=== PATIENT | female | born 1940 | race Caucasian/White ===

== ENCOUNTER 2018-07-28 17:18 | Inpatient (IN) | payer MEDICARE, MEDICAID ==
[~2018-07-28] VITALS: Ht 167.6 cm; Wt 51.8 kg
--- NOTE | 2018-07-28 18:00 | NUR ---
NURSE NOTES: female AOX1 only to name. admitted 2 to cellulitis to rt foot. Rt and lt assessed no presence of redness or swelling skin to bilateral feet. Pt has old scar to abdominal area. Poor historian, unable to answer any questions. SNF phoned for immunization information with known to be found. Unable to start IV site 3 attempt pt retracting arms. phoned for admitting orders with no response upon this writing. Fall risk precautions in place bed in lowest position
[2018-07-28] MEDS ORDERED: MULTIVITAMINS1 EAC2 ORAL (18:06)
[2018-07-28] MEDS ORDERED: ACETAMINOPHEN325 M1 ORAL (18:06)
[2018-07-28] MEDS ORDERED: BISACODYL5 MG ORAL (18:06)
[2018-07-28] MEDS ORDERED: FLEET ENEMA133 ML RECTAL (18:06)
[2018-07-28] MEDS ORDERED: MEMANTINE HCL ER7 MG PO (18:06)
[2018-07-28] MEDS ORDERED: MILK OF MA2400 MG/10 ORAL (18:06)
[2018-07-28 18:38] VITALS: BP 105/59
--- NOTE | 2018-07-28 19:45 | NUR ---
NURSE NOTES: Received patient in bed legs dangling on the side of the bed. Patient awake and with periods of confusion. Attempted to re-orient patient to name, place and time, patient only replied by rambling. No belongings noted. Patient in no distress noted. No facial grimacing. No IV access. Will insert one. Collected specimen for MRSA, VRE and CRE. Partial sponge bath provided by BAR ATTENDANT.
[2018-07-28 20:00] VITALS: BP 113/61
--- NOTE | 2018-07-28 20:00 | NUR ---
NURSE NOTES: call ed facility gave orders to continue all group home meds. dr informed that both feet were assessed no visible redness noted . Gave orders to treat pt for cellulitis as follows. Pharmacy to dose Vancomycin, ua by straight catheterization, cmp, bmp, bilateral venous duplex to lower extremity. Also gave orders for 1/2 NS to be given at 75 cc/hr, Tylenol per protocol 650 mg q 4 hours
[2018-07-28] MEDS ORDERED: Fleet's Enema 133ml RECTAL PRN (20:45)
[2018-07-28] MEDS ORDERED: Milk of Magnesia 30ml Ud ORAL PRN (20:45)
--- NOTE | 2018-07-28 20:58 | NUR ---
HAND-OFF: Report given to .Saul BAIRES
--- NOTE | 2018-07-28 20:59 | NUR ---
NURSE NOTES: Oncoming nurse made aware that pt does not have iv access # attempts made by publicity writer, pt retracted arm. As well as follow up DVT prophylaxis.
[2018-07-28 21:33] LABS: BASOPHILS % (AUTO) 1.4 % (0.0-2.0); EOSINOPHILS % (AUTO) 2.8 % (0.0-3.0); HEMOGLOBIN 12.5 G/DL (12.0-16.0); MEAN CORPUSCULAR VOLUME 91 FL (80-99); MONOCYTES % (AUTO) 10.7 % (1.0-10.0); NEUTROPHILS % (AUTO) 60.1 % (45.0-75.0); PLATELET COUNT 166 K/UL (150-450); RED BLOOD COUNT 4.29 M/UL (4.20-5.40); WHITE BLOOD COUNT 8.9 K/UL (4.8-10.8)
--- NOTE | 2018-07-28 22:15 | History and Physical Report ---
DATE OF ADMISSION: 07/28/2018 REASON FOR ADMISSION: Cellulitis, peripheral vascular disease, possible gangrene, dementia, and depression. HISTORY OF PRESENT ILLNESS: This is a 76-year-old female who has a past medical history of dementia, depression, failure to thrive, came to the emergency room for having cellulitis on the left leg and also the patient's left foot is ischemic and blood . The patient cannot give any history. She is alert and oriented x1, mostly bedridden. PAST MEDICAL HISTORY: Dementia, depression, and dysphagia. MEDICATIONS: See the list. ALLERGIES: NKA. FAMILY HISTORY: Noncontributory. SOCIAL HISTORY: [facility], mostly bedridden. REVIEW OF SYSTEMS: Cannot be obtained. PHYSICAL EXAMINATION: GENERAL: This is an elderly female who is currently in bed. VITAL SIGNS: Blood pressure 120/70, pulse 74, and respirations 18. No fever. SKIN: Good skin turgor. HEENT: NAD. CHEST: Bilaterally clear. CARDIOVASCULAR: Regular rhythm. No gallop or murmur. ABDOMEN: Soft. Positive bowel sounds. Nontender. EXTREMITIES: Right leg has cellulitis and erythema and ischemic changes. GENITOURINARY: Deferred. LABORATORY EXAMINATION: Pending. ASSESSMENT: 1. Cellulitis. 2. Possible gangrene, rule out ischemia. 3. Hypertension. 4. Depression. 5. Dementia. 6. Dysphagia. PLAN: We will admit on medical floor. We will start intravenous vancomycin and consider ID consult and check arterial and venous duplex to rule out peripheral vascular disease. Chao Mcdonald M.D. DR: GRISELDA JOB#: [id number] CC:
[2018-07-28 22:18] LABS: ALANINE AMINOTRANSFERASE 17 U/L (12-78); ALBUMIN 3.2 G/DL (3.4-5.0); ALBUMIN/GLOBULIN RATIO 0.8 (1.0-2.7); ALKALINE PHOSPHATASE 97 U/L (46-116); ANION GAP 8 mmol/L (5-15); ASPARTATE AMINO TRANSFERASE 27 U/L (15-37); BILIRUBIN,TOTAL 0.4 MG/DL (0.2-1.0); BLOOD UREA NITROGEN 17 mg/dL (7-18); CALCIUM 9.7 MG/DL (8.5-10.1); CARBON DIOXIDE 28 MMOL/L (21-32); CHLORIDE 106 MMOL/L (98-107); CREATININE 0.7 MG/DL (0.55-1.30); POTASSIUM 5.1 MMOL/L (3.5-5.1); SODIUM 142 MMOL/L (136-145)
[2018-07-29] VITALS: BP 104/61
[2018-07-29 04:00] VITALS: BP 112/58
--- NOTE | 2018-07-29 05:00 | NUR ---
NURSE NOTES: Patient in bed sleeping with no distress noted. Purewick placed and able to collect urine fo UA. Partial sponge bath provided.
[2018-07-29 06:37] LABS: APPEARANCE,URINE CLEAR; BILIRUBIN, URINE NEGATIVE (NEGATIVE); COLOR,URINE PALE YELLOW; GLUCOSE, URINE (UA) NEGATIVE (NEGATIVE); KETONES,URINE NEGATIVE (NEGATIVE); LEUKOCYTE ESTERASE ,URINE 2+ (NEGATIVE); NITRITE,URINE NEGATIVE (NEGATIVE); PH,URINE 6 (4.5-8.0); PROTEIN,URINE NEGATIVE (NEGATIVE); UROBILINOGEN,URINE NORMAL MG/DL (0.0-1.0)
--- NOTE | 2018-07-29 07:32 | NUR ---
HAND-OFF: Report given to VIRY Waggoner.
--- NOTE | 2018-07-29 07:57 | NUR ---
NURSE NOTES: Patient alert to name,respirations unlabored,IV fluids infusing as ordered. Strong pedal pulses noted to bilateral feet ,skin intact. Breakfast at bed side will assist patient.Bed alarm is on,call light within reach.
[2018-07-29 08:00] VITALS: BP 125/69
[2018-07-29 12:00] VITALS: BP 100/69
--- NOTE | 2018-07-29 12:23 | Consultation ---
History of Present Illness General Date patient seen: Jul 29, 2018 Present Illness HPI 76-year-old female with past medical history of dementia, depression, failure to thrive, came to the emergency room for having LLE cellulitis. the pt Allergies: Coded Allergies: No Known Allergies (Unverified , 07/28/18) Medication History Scheduled Memantine HCl (Memantine HCl ER), 7 MG PO DAILY, (Reported) Multivitamins* (Multivitamins*), 1 TAB ORAL DAILY, (Reported) Scheduled PRN Acetaminophen* (Acetaminophen 325MG Tablet*), 650 MG ORAL Q6H PRN for For Pain, (Reported) Bisacodyl* (Dulcolax*), 10 MG ORAL DAILY PRN for Constipation, (Reported) Magnesium Hydroxide* (Milk Of Magnesia*), 30 ML ORAL DAILY PRN for Constipation, (Reported) Na Phos,M-B/Na Phos,Di-Ba* (Fleet Enema*), 133 ML RECTAL DAILY PRN for Constipation, (Reported) Patient History Healthcare decision maker Resuscitation status Full Code Advanced Directive on File Physical Exam Last 24 Hour Vital Signs Date Time Temp Pulse Resp B/P (MAP) Pulse Ox O2 Delivery O2 Flow Rate FiO2 07/29/18 09:00 Room Air 07/29/18 04:00 97.4 64 16 112/58 (76) 99 07/29/18 00:00 97.9 73 16 104/61 (75) 94 07/28/18 21:00 Room Air 07/28/18 20:00 98.1 76 18 113/61 (78) 100 07/28/18 18:38 98.0 79 20 105/59 (74) 98 07/28/18 17:44 Room Air Intake and Output 07/28/18 07/29/18 19:00 07:00 Intake Total 600 ml Balance 600 ml Intake IV Total 600 ml # Voids 2 Laboratory Tests Test 07/28/18 21:00 07/28/18 21:08 07/29/18 05:50 White Blood Count 8.9 K/UL (4.8-10.8) Red Blood Count 4.29 M/UL (4.20-5.40) Hemoglobin 12.5 G/DL (12.0-16.0) Hematocrit 39.0 % (37.0-47.0) Mean Corpuscular Volume 91 FL (80-99) Mean Corpuscular Hemoglobin 29.2 PG (27.0-31.0) Mean Corpuscular Hemoglobin Concent 32.1 G/DL (32.0-36.0) Red Cell Distribution Width 12.0 % (11.6-14.8) Platelet Count 166 K/UL (150-450) Mean Platelet Volume 6.6 FL (6.5-10.1) Neutrophils (%) (Auto) 60.1 % (45.0-75.0) Lymphocytes (%) (Auto) 25.0 % (20.0-45.0) Monocytes (%) (Auto) 10.7 % (1.0-10.0) H Eosinophils (%) (Auto) 2.8 % (0.0-3.0) Basophils (%) (Auto) 1.4 % (0.0-2.0) Sodium Level 142 MMOL/L (136-145) Potassium Level 5.1 MMOL/L (3.5-5.1) Chloride Level 106 MMOL/L (98-107) Carbon Dioxide Level 28 MMOL/L (21-32) Anion Gap 8 mmol/L (5-15) Blood Urea Nitrogen 17 mg/dL (7-18) Creatinine 0.7 MG/DL (0.55-1.30) Estimat Glomerular Filtration Rate mL/min (>60) Glucose Level 92 MG/DL (74-106) Calcium Level 9.7 MG/DL (8.5-10.1) Total Bilirubin 0.4 MG/DL (0.2-1.0) Aspartate Amino Transf (AST/SGOT) 27 U/L (15-37) Alanine Aminotransferase (ALT/SGPT) 17 U/L (12-78) Alkaline Phosphatase 97 U/L (46-116) Total Protein 7.2 G/DL (6.4-8.2) Albumin 3.2 G/DL (3.4-5.0) L Globulin 4.0 g/dL Albumin/Globulin Ratio 0.8 (1.0-2.7) L Urine Color Pale yellow Urine Appearance Clear Urine pH 6 (4.5-8.0) Urine Specific [place] 1.015 (1.005-1.035) Urine Protein Negative (NEGATIVE) Urine Glucose (UA) Negative (NEGATIVE) Urine Ketones Negative (NEGATIVE) Urine Blood 1+ (NEGATIVE) H Urine Nitrite Negative (NEGATIVE) Urine Bilirubin Negative (NEGATIVE) Urine Urobilinogen Normal MG/DL (0.0-1.0) Urine Leukocyte Esterase 2+ (NEGATIVE) H Urine RBC 0-2 /HPF (0 - 2) Urine WBC 2-4 /HPF (0 - 2) Urine Squamous Epithelial Cells Occasional /LPF Urine Bacteria Occasional /HPF (NONE) Microbiology Date/Time Source Procedure Growth Status 07/28/18 21:00 Rectum Received Height (Feet): 5 Height (Inches): 6.00 Weight (Pounds): 116 Medications Current Medications Medications (Trade) Dose Ordered Sig/Jonna Route PRN Reason Start Time Stop Time Status Last Admin Dose Admin Acetaminophen (Tylenol) 650 mg Q4H PRN ORAL Mild Pain/Temp > 100.5 07/28/18 20:45 08/27/18 20:44 Magnesium Hydroxide (Mom) 30 ml DAILYPRN PRN ORAL Constipation 07/28/18 20:45 08/27/18 20:44 Sodium Chloride 1,000 ml @ 75 mls/hr [id number] IV 07/28/18 20:45 08/27/18 20:44 07/29/18 11:32 Sodium Phosphate (Fleet's Sodium Phosl Enema) 133 ml NEEDED PRN RECTAL Constipation 07/28/18 20:45 08/27/18 20:44 Vancomycin HCl (Vanco rx to dose) 1 ea DAILY PRN MISC Per rx protocol 07/28/18 20:45 08/27/18 20:44 Vancomycin/Sodium Chloride 250 ml @ 166.667 mls/hr Q24H IVPB 07/29/18 23:00 08/03/18 22:59 Assessment/Plan Problem List: (1) MDD (major depressive disorder), recurrent episode ICD Codes: F33.9 - Major depressive disorder, recurrent, unspecified SNOMED: 928704004 (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 Brenton Lopez MD Jul 29, 2018 12:23
[2018-07-29 16:00] VITALS: BP 92/65
--- NOTE | 2018-07-29 18:00 | NUR ---
NURSE NOTES: Patient resting,bed alarm on.
--- NOTE | 2018-07-29 19:15 | NUR ---
NURSE NOTES: Received report from Rosaline BAIRES. Pt was resting in the bed without any acute distress noted. AO x1. Bedbound. Rails are up x3 and bed alarm is on. Call light is within reach. Will continue to follow the plan of care.
[2018-07-29 20:00] VITALS: BP 119/72
[2018-07-29] MEDS: cefTRIAXone 1 GM in D5W 55 ML IVPB SCH (20:26)
--- NOTE | 2018-07-29 20:45 | Progress Note ---
DATE: 07/29/2018 SUBJECTIVE: This is an elderly 78-year-old female, currently sitting in bed, slightly confused, talking herself, but looks comfortable. OBJECTIVE: VITAL SIGNS: Blood pressure is 112/58, pulse 64, respirations 16, and temperature is 97.4. HEENT: NAD. CHEST: Bilaterally clear. CARDIOVASCULAR: Regular rhythm. No gallop. No murmur. ABDOMEN: Soft. EXTREMITIES: Right leg is slightly warm on touch. Mild erythema. GENITOURINARY: Deferred. LABORATORY DATA: White counts is 8.9. Chemistry panel, albumin is 3.2. Urine is showing 2+ leukocyte esterase. ASSESSMENT: 1. Cellulitis. 2. Urinary tract infection. 3. Possible peripheral vascular disease. 4. Dementia. PLAN: Discussed with the son. We will order arterial duplex and continue antibiotics and check laboratories. Chao Mcdonald M.D. DR: GRISELDA JOB#: [id number] CC:
[2018-07-29] MEDS ORDERED: Vancomycin 750mg/NS 250ml IVPB SCH (23:00)
[2018-07-30] VITALS (7 sets, daily range): BP systolic 93–133; BP diastolic 52–90
--- NOTE | 2018-07-30 07:20 | NUR ---
HAND-OFF: Report given to Rosaline BAIRES.
--- NOTE | 2018-07-30 07:49 | NUR ---
NURSE NOTES: Patient is alert to name,IV fluids infusing as ordered.breakfast at bedside,will assist patient,call light within reach,bed alarm is on.
--- NOTE | 2018-07-30 12:04 | General Progress Note ---
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 Subjective Neurologic/Psychiatric: Reports: anxiety, depressed, emotional problems Allergies: Coded Allergies: No Known Allergies (Unverified , 07/28/18) Objective Last 24 Hour Vital Signs Date Time Temp Pulse Resp B/P (MAP) Pulse Ox O2 Delivery O2 Flow Rate FiO2 07/30/18 09:00 Room Air 07/30/18 08:00 98.1 112 18 133/90 (104) 96 07/30/18 04:00 98.1 67 18 111/67 (82) 99 07/30/18 00:00 98.0 72 18 93/52 (66) 99 07/29/18 21:00 Room Air 07/29/18 20:00 97.8 72 18 119/72 (88) 97 07/29/18 16:00 98.0 19 92/65 (74) 79 Intake and Output 07/29/18 07/30/18 19:00 07:00 Intake Total 900 ml 1200 ml Output Total 1000 ml Balance 900 ml 200 ml IV Total 900 ml Other 1200 ml Output Urine Total 1000 ml # Voids 3 # Bowel Movements 2 Height (Feet): 5 Height (Inches): 6.00 Weight (Pounds): 116 General Appearance: lethargic, confused, agitated Brenton Lopez MD Jul 30, 2018 12:04
--- NOTE | 2018-07-30 19:05 | NUR ---
NURSE NOTES: Patient resting,quiet,,bed alarm on.
--- NOTE | 2018-07-30 19:40 | NUR ---
HAND-OFF: Report given to ELENI BAIRES.
--- NOTE | 2018-07-30 19:41 | NUR ---
NURSE NOTES: Received report from VIRY Waggoner. Patient A&Ox1, in bed. On room air, no signs of distress or labored breathing. IV intact, patent, and saline locked. Bed in lowest position with call light in reach. Will continue with plan of care.
--- NOTE | 2018-07-30 21:00 | Progress Note ---
DATE: 07/30/2018 SUBJECTIVE: This is an elderly female, who is currently doing fine in bed and looks comfortable. OBJECTIVE: VITAL SIGNS: Blood pressure 115/70, temperature 97.7. CHEST: Bilaterally clear. CARDIOVASCULAR: Regular rhythm. ABDOMEN: Soft. EXTREMITIES: ASSESSMENT: 1. Cellulitis. 2. Peripheral vascular disease. 3. . 4. Urinary tract infection. 5. Dementia. PLAN: 1. Continue antibiotics. 2. Discontinue intravenous fluids. 3. Discussed with the charge nurse. 4. Discussed with the son. 5. Poor prognosis. Chao Mcdonald M.D. DR: Bill JOB#: [id number] CC:
[2018-07-30] MEDS: cefTRIAXone 1 GM in D5W 55 ML IVPB SCH (21:05)
[2018-07-31] VITALS: BP 107/57
[2018-07-31 04:00] VITALS: BP 118/63
--- NOTE | 2018-07-31 07:48 | NUR ---
HAND-OFF: Report given to VIRY Arrington.
[2018-07-31 08:00] VITALS: BP 100/59
--- NOTE | 2018-07-31 08:02 | NUR ---
NURSE NOTES: Pt awake oreintated to name only requires assistance with all needs. Safety will be implemented. Current plan of care will be followed Addendum: 07/31/18 at 1439 by Nury Donis RN orientated correction in spelling
[2018-07-31 12:00] VITALS: BP 100/61
--- NOTE | 2018-07-31 12:42 | Diagnostic Imaging Report ---
APPROVED REPORT CPT Code: 94007 Symptoms Comments: Infection Comments Technically difficult due to patient status, moved both legs. BILATERAL: Common femoral artery waveform analysis is within normal limits at rest. Color flow duplex sonography reveals patency of the superficial femoral, popliteal, and tibial arteries, there is no evidence of stenosis or occlusion within these segments. Doppler tibial artery waveform analysis is within normal limits, bilaterally. There is no evidence of significant arterial occlusive disease, bilaterally.
--- NOTE | 2018-07-31 12:43 | Diagnostic Imaging Report ---
APPROVED REPORT CPT Code: 38681 Present Symptoms Comments: Pain Hx of Dementia Comments Technically difficult due to patient status, moved lower extremities BILATERAL: Imaging reveals a patent deep venous system bilaterally. There is no evidence of thrombus within the femoral, popliteal or tibial segments. The greater saphenous veins are also within normal limits. Doppler indicates normal spontaneous flow within these segments.
[2018-07-31 16:00] VITALS: BP 110/70
--- NOTE | 2018-07-31 17:30 | Progress Note ---
DATE: 07/31/2018 SUBJECTIVE: This is an elderly female who came with a cellulitis of the legs. She is doing better. OBJECTIVE: VITAL SIGNS: Stable. CHEST: Bilaterally clear. CARDIOVASCULAR: Regular rhythm. ABDOMEN: Soft. EXTREMITIES: CCE NEUROLOGICALLY: No focal deficit. ASSESSMENT: 1. Cellulitis. 2. Possible peripheral vascular disease. 3. . 4. Dementia. PLAN: 1. Continue antibiotics. 2. Continue supportive treatment. Chao Mcdonald M.D. DR: Bill JOB#: [id number] CC:
--- NOTE | 2018-07-31 18:53 | NUR ---
NURSE NOTES: Dr lovell paged in regards to DVT prophylaxis . Venous duplex - . Pt talking to self most of shift. All anticipated needs met. Due to baseline mental status despite repositioning pt will turn self and place self in supine position. Required to be fed. Breathing room air with no signs of distress. Son called earlier in shift , update given on venous duplex per request of son . "Rajeev' Patient is only alert to name , rubbing on sheets, as if washing clothes. Current plan of care will be followed
--- NOTE | 2018-07-31 19:54 | NUR ---
NURSE NOTES: Patient in bed, awake, alert to name, talking to herself. No s/s distress or pain noted. Bed in lowest position, call light within reach, bed alarm on. Will continue to monitor.
[2018-07-31 20:00] VITALS: BP 94/81
--- NOTE | 2018-07-31 20:09 | General Progress Note ---
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 Subjective Neurologic/Psychiatric: Reports: anxiety, depressed, emotional problems Allergies: Coded Allergies: No Known Allergies (Unverified , 07/28/18) Objective Last 24 Hour Vital Signs Date Time Temp Pulse Resp B/P (MAP) Pulse Ox O2 Delivery O2 Flow Rate FiO2 07/31/18 16:00 97.2 61 18 110/70 (83) 99 07/31/18 12:00 97.6 18 100/61 (74) 97 07/31/18 09:00 Room Air 07/31/18 08:00 98.8 63 18 100/59 (73) 95 07/31/18 04:00 97.0 67 17 118/63 (81) 99 07/31/18 00:00 97.3 83 17 107/57 (74) 100 07/30/18 21:00 Room Air Intake and Output 07/30/18 07/31/18 19:00 07:00 Intake Total 840 ml Balance 840 ml Intake Oral 240 ml IV Total 600 ml # Voids 3 3 # Bowel Movements 4 1 Height (Feet): 5 Height (Inches): 6.00 Weight (Pounds): 114 General Appearance: alert, confused, agitated Brenton Lopez MD Jul 31, 2018 20:09
--- NOTE | 2018-07-31 20:11 | NUR ---
HAND-OFF: Report given to Katie Lomas Rn.
[2018-07-31] MEDS: cefTRIAXone 1 GM in D5W 55 ML IVPB SCH (20:12)
--- NOTE | 2018-07-31 20:14 | NUR ---
NURSE NOTES: Oncoming nurse made aware that Dr Chapman was paged for DVT prophylaxis no return call on 0700- 1900 shift
[2018-08-01] VITALS: BP 115/62
[2018-08-01 04:00] VITALS: BP 99/66
--- NOTE | 2018-08-01 05:00 | NUR ---
NURSE NOTES: patient asleep, no distress.
--- NOTE | 2018-08-01 07:23 | NUR ---
HAND-OFF: Report given to LUISITO ERNST RN.
--- NOTE | 2018-08-01 07:54 | NUR ---
NURSE NOTES: Patient fed, easily distracted, requires encouragement, to drink fluids , urine is dark yellow. almost vaughn. Pt is confused all anticipated needs will require to be met.
[2018-08-01 08:00] VITALS: BP 105/73
--- NOTE | 2018-08-01 09:35 | NUR ---
NURSE NOTES: here made aware of results of venous duplex nno . gave okay for no use of dvt prophylaxis since patient is repeatedly, changing positions , without assistance
--- NOTE | 2018-08-01 11:51 | NUR ---
RD ASSESSMENT & RECOMMENDATIONS SEE CARE ACTIVITY FOR COMPLETE ASSESSMENT DAILY ESTIMATED NEEDS: Needs based on Underweight/ 52kg 28-33 kcals/kg 9067-8605 total kcals 1-1.3 g protein/kg 52-67 g total protein 25-30 mL/kg 4040-5138 total fluid mLs NUTRITION DIAGNOSIS: 1) Possible chewing and swallowing difficulty R/T dysphagia? dementia dx as evidenced by pt on pureed moist texture diet. CURRENT DIET:REGULAR/PUREED MOIST PO DIET RECOMMENDATIONS: REGULAR/ Texture per LAUNDRY LABORER ADDITIONAL RECOMMENDATIONS: * Consider LAUNDRY LABORER eval for appropriate texture * Calibrated bedscale wt for accurate CBW * Updated CBC, BMP as able * MVI x 1 as supplement * Snacks BID
[2018-08-01 12:00] VITALS: BP 113/78
--- NOTE | 2018-08-01 12:21 | NUR ---
DISCHARGE PLANNED PATIENT DISCHARGE BACK TO: [facility] ROOM#11-B S/W EVELIO SKILLED T:[phone] FOR NURSE TO NURSE REPORT [facility] HAS BEEN ARRANGED FOR ENVIRONMENTAL FIELD TEAM MEMBER AT 1330 S/W WITH JONATHAN [id number]
--- NOTE | 2018-08-01 13:50 | NUR ---
NURSE NOTES: patient discharged back to [facility] breathing room air with no signs of distress. Pt orientated to name only. Skin remains intact, IV removed . Plan of care under the direction of Dr. Chapman completed. Report given to Linda DERAS. Message left to [place] patient son. Patient was a direct admit from [facility] brought in without belongings. Pt returned to SNF with previous orders home orders.
--- NOTE | 2018-08-01 22:45 | Discharge Summary ---
DATE OF ADMISSION: 07/28/2018 DATE OF DISCHARGE: 08/01/2018 HOSPITAL COURSE: This is an 78-year-old female, who came to the emergency room for cellulitis of right leg. The patient is currently doing better. She is in bed. She received IV antibiotics and ID consult. The patient clinically improved, going to go back to the halfway. DISCHARGE DIAGNOSES: 1. Cellulitis. 2. Dementia. DIET: She is on pureed diet. ACTIVITY: Bed rest. DISCHARGE MEDICATIONS: See the list from the hospital. Chao Mcdonald M.D. DR: Bill JOB#: [id number] CC:
--- NOTE | 2018-08-01 23:42 | General Progress Note ---
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 Subjective Neurologic/Psychiatric: Reports: anxiety, depressed, emotional problems Allergies: Coded Allergies: No Known Allergies (Unverified , 07/28/18) Objective Last 24 Hour Vital Signs Date Time Temp Pulse Resp B/P (MAP) Pulse Ox O2 Delivery O2 Flow Rate FiO2 08/01/18 12:00 98.0 16 113/78 (90) 100 08/01/18 09:00 Room Air 08/01/18 08:00 97.8 16 105/73 (84) 95 08/01/18 04:00 97.0 93 18 99/66 (77) 93 08/01/18 00:00 97.3 90 18 115/62 (79) 95 Intake and Output 07/31/18 08/01/18 19:00 07:00 Intake Total 1000 ml 55 ml Balance 1000 ml 55 ml IV Total 55 ml Other 1000 ml Height (Feet): 5 Height (Inches): 6.00 Weight (Pounds): 114 General Appearance: no apparent distress, alert, confused, agitated Brenton Lopez MD Aug 01, 2018 23:42
== END 2018-08-01 14:45 | DRG 602 ==
LOC: 4E 17:18
DX: L03.115 Cellulitis of right lower limb (principal); G92 Toxic encephalopathy; N39.0 Urinary tract infection, site not specified; F33.9 Major depressive disorder, recurrent, unspecified; Z68.1 Body mass index [BMI] 19.9 or less, adult; F03.90 Unspecified dementia, unspecified severity, without behavioral disturbance, psychotic disturbance, mood disturbance, and anxiety; I73.9 Peripheral vascular disease, unspecified; I10 Essential (primary) hypertension; R13.10 Dysphagia, unspecified; R62.7 Adult failure to thrive
CPT/HCPCS: 36415; 80053; 81001; 85025; 87081; 93925; 93971

== ENCOUNTER 2019-11-06 13:16 | Inpatient (IN) | payer MEDICARE, MEDICAID ==
[~2019-11-06] VITALS: Ht 165.1 cm; Wt 52.2 kg
[~2019-11-06 13:16] MED LIST: ACETAMINOPHEN325 M1 ORAL; BISACODYL5 MG ORAL; FLEET ENEMA133 ML RECTAL; MEMANTINE HCL ER7 MG PO; MILK OF MA2400 MG/10 ORAL; MULTIVITAMINS1 EAC2 ORAL
[2019-11-06 13:20] VITALS: BP 116/70
[2019-11-06] MEDS ORDERED: ASPIR 8181 MG ORAL (13:43)
[2019-11-06] MEDS ORDERED: NAMENDA10 MG ORAL (13:43)
[2019-11-06] MEDS ORDERED: Pantoprazole 80 MG in NS 250 ML IV ONE (14:00)
[2019-11-06] MEDS ORDERED: Pantoprazole Inj IVP ONE (14:00)
--- NOTE | 2019-11-06 14:04 | Emergency Room Report ---
History of Present Illness General Chief Complaint: General Complaint Source: Medical Record, EMS, PMD (Yue Morton Eliza ) Present Illness HPI This patient presents from a half-way facility. Per report from the half-way facility, the G-tube of the patient was putting out a coffee ground looking fluid. There is no report of any other symptoms. There is no report of fever. There is no report of vomiting. The patient is nonverbal at baseline. She has multiple medical problems to include diabetes, recurrent DVTs , psychiatric disorders, failure to thrive and dementia and chronic kidney disease. History is obtained from the medical record. She is nonverbal. She also has a history of breast cancer. (Yue Morton Eliza MIX) Allergies: Coded Allergies: No Known Allergies (Unverified , 07/28/18) COVID-19 Screening Contact w/high risk pt: No Recent Travel to affected area: No Experienced COVID-19 symptoms?: No (Yue Morton Eliza MIX) Patient History Past Medical History: see triage record, old chart reviewed, DM, dementia, other - Breast CA, Social History: Denies: smoking, alcohol use, drug use Now: No Reviewed Nursing Documentation: PMH: Agreed; PSxH: Agreed (JimmyYue Eliza ) Nursing Documentation-PMH Hx Hypertension: Yes Hx Diabetes: Yes History Of Psychiatric Problem: Yes - depression, failure to thrive Hx Dementia: Yes (Yue Morton Eliza MIX) Review of Systems All Other Systems: negative except mentioned in HPI (JimmyYue Eliza ) Physical Exam Vital Signs Date Time Temp Pulse Resp B/P (MAP) Pulse Ox O2 Delivery O2 Flow Rate FiO2 11/06/19 13:17 98.8 87 18 118/72 (87) 95 Room Air Sp02 EP Interpretation: reviewed, normal General Appearance: no apparent distress, alert, GCS 15, non-toxic Head: normocephalic, atraumatic Eyes: bilateral eye normal inspection ENT: no angioedema Neck: normal inspection Respiratory: chest non-tender, lungs clear, normal breath sounds, no respiratory distress, no retraction, no accessory muscle use, speaking full sentences Cardiovascular #1: regular rate, rhythm, no edema Gastrointestinal: normal bowel sounds, non tender, soft, non-distended, no guarding, no rebound, other - G-tube in place Rectal: deferred Musculoskeletal: other - contracted Neurologic: alert, other - At baseline Psychiatric: mood/affect normal Skin: Decubitus/Ulcer - See RN skin exam (Yue Morton DO) Medical Decision Making Diagnostic Impression: Primary Impression: Coffee ground emesis Additional Impression: UTI (urinary tract infection) ER Course Patient received in signout. Patient pending laboratory studies final disposition. From laboratory studies patient did have leukocytosis. Urinalysis concerning for UTI. IV antibiotics were given. KUB done of the abdomen did not demonstrate any evidence of air-fluid levels or obstruction. Case discussed with patient's primary care doctor who agreed to admit to the telemetry floor. Laboratory Tests Test 11/06/19 14:00 11/06/19 14:18 Urine Color Pale yellow Urine Appearance Very cloudy Urine pH 7 (4.5-8.0) Urine Specific [place] 1.010 (1.005-1.035) Urine Protein 3+ (NEGATIVE) H Urine Glucose (UA) Negative (NEGATIVE) Urine Ketones Negative (NEGATIVE) Urine Blood 5+ (NEGATIVE) H Urine Nitrite Negative (NEGATIVE) Urine Bilirubin Negative (NEGATIVE) Urine Urobilinogen Normal MG/DL (0.0-1.0) Urine Leukocyte Esterase 3+ (NEGATIVE) H Urine RBC Tntc /HPF (0 - 2) H Urine WBC Tntc /HPF (0 - 2) H Urine Squamous Epithelial Cells Few /LPF (NONE/OCC) Urine Bacteria Moderate /HPF (NONE) H White Blood Count 20.0 K/UL (4.8-10.8) H Red Blood Count 4.35 M/UL (4.20-5.40) Hemoglobin 12.5 G/DL (12.0-16.0) Hematocrit 37.2 % (37.0-47.0) Mean Corpuscular Volume 85 FL (80-99) Mean Corpuscular Hemoglobin 28.7 PG (27.0-31.0) Mean Corpuscular Hemoglobin Concent 33.6 G/DL (32.0-36.0) Red Cell Distribution Width 15.3 % (11.6-14.8) H Platelet Count 171 K/UL (150-450) Mean Platelet Volume 7.0 FL (6.5-10.1) Neutrophils (%) (Auto) % (45.0-75.0) Lymphocytes (%) (Auto) % (20.0-45.0) Monocytes (%) (Auto) % (1.0-10.0) Eosinophils (%) (Auto) % (0.0-3.0) Basophils (%) (Auto) % (0.0-2.0) Differential Total Cells Counted 100 Neutrophils % (Manual) 66 % (45-75) Lymphocytes % (Manual) 23 % (20-45) Monocytes % (Manual) 7 % (1-10) Eosinophils % (Manual) 4 % (0-3) H Basophils % (Manual) 0 % (0-2) Band Neutrophils 0 % (0-8) Platelet Estimate Adequate Platelet Morphology Normal Polychromasia 1+ Anisocytosis 1+ Prothrombin Time 10.6 SEC (9.30-11.50) Prothrombin Time INR 1.0 (0.9-1.1) Activated Partial Thromboplast Time 22 SEC (23-33) L Sodium Level 141 MMOL/L (136-145) Potassium Level 4.0 MMOL/L (3.5-5.1) Chloride Level 105 MMOL/L (98-107) Carbon Dioxide Level 29 MMOL/L (21-32) Anion Gap 7 mmol/L (5-15) Blood Urea Nitrogen 56 mg/dL (7-18) H Creatinine 0.9 MG/DL (0.55-1.30) Estimated Glomerular Filtration Rate > 60 mL/min (>60) Glucose Level 121 MG/DL (74-106) H Lactic Acid Level 0.90 mmol/L (0.4-2.0) Calcium Level 10.7 MG/DL (8.5-10.1) H Total Bilirubin 0.4 MG/DL (0.2-1.0) Aspartate Amino Transferase (AST) 26 U/L (15-37) Alanine Aminotransferase (ALT) 17 U/L (12-78) Alkaline Phosphatase 82 U/L (46-116) Total Creatine Kinase 89 U/L (26-308) Creatine Kinase MB 1.1 NG/ML (0.0-3.6) Creatine Kinase MB Relative Index 1.2 Total Protein 7.6 G/DL (6.4-8.2) Albumin 2.5 G/DL (3.4-5.0) L Globulin 5.1 g/dL Albumin/Globulin Ratio 0.5 (1.0-2.7) L (Horace Peraza M.D.) Other X-Ray Diagnostic Results Other X-Ray Diagnostic Results : X-Ray ordered: KUB # of Views/Limited Vs Complete: 1 View Indication: Pain EP Interpretation: Yes Interpretation: nonspecific bowel gas, no sbo Impression: Other - Stool burden noted (Horace Peraza M.D.) Last Vital Signs Date Time Temp Pulse Resp B/P (MAP) Pulse Ox O2 Delivery O2 Flow Rate FiO2 11/06/19 13:20 98.7 88 18 116/70 96 Room Air (Yue Morton DO) Status: unchanged (Horace Peraza M.D.) Disposition: ADMITTED INPATIENT Condition: Serious Referrals: Radu Mcdonald MD (PCP) Yue Morton DO Nov 06, 2019 14:04 Horace Peraza M.D. Nov 06, 2019 17:36
[2019-11-06 14:45] LABS: HEMATOCRIT 37.2 % (37.0-47.0); HEMOGLOBIN 12.5 G/DL (12.0-16.0); MEAN CORPUSCULAR VOLUME 85 FL (80-99); PLATELET COUNT 171 K/UL (150-450); RED BLOOD COUNT 4.35 M/UL (4.20-5.40); RED CELL DISTRIBUTION WIDTH 15.3 % (11.6-14.8)
[2019-11-06 14:47] LABS: APPEARANCE,URINE VERY CLOUDY; BILIRUBIN, URINE NEGATIVE (NEGATIVE); COLOR,URINE PALE YELLOW; GLUCOSE, URINE (UA) NEGATIVE (NEGATIVE); KETONES,URINE NEGATIVE (NEGATIVE); LEUKOCYTE ESTERASE ,URINE 3+ (NEGATIVE); NITRITE,URINE NEGATIVE (NEGATIVE); PH,URINE 7 (4.5-8.0); PROTEIN,URINE 3+ (NEGATIVE); UROBILINOGEN,URINE NORMAL MG/DL (0.0-1.0)
[2019-11-06 15:00] LABS: ANION GAP 7 mmol/L (5-15); BLOOD UREA NITROGEN 56 mg/dL (7-18); CALCIUM 10.7 MG/DL (8.5-10.1); CARBON DIOXIDE 29 MMOL/L (21-32); CHLORIDE 105 MMOL/L (98-107); CREATININE 0.9 MG/DL (0.55-1.30); SODIUM 141 MMOL/L (136-145)
[2019-11-06] MEDS ORDERED: cefTRIAXone 1 GM in NS 55 ML IVPB ONE (15:00)
[2019-11-06 15:23] VITALS: BP 112/72
[2019-11-06 15:27] LABS: ALANINE AMINOTRANSFERASE 17 U/L (12-78); ALBUMIN 2.5 G/DL (3.4-5.0); ALBUMIN/GLOBULIN RATIO 0.5 (1.0-2.7); ALKALINE PHOSPHATASE 82 U/L (46-116); ASPARTATE AMINO TRANSFERASE 26 U/L (15-37); BILIRUBIN,TOTAL 0.4 MG/DL (0.2-1.0); CKMB 1.1 NG/ML (0.0-3.6); CREATINE KINASE 89 U/L (26-308)
[2019-11-06 17:19] VITALS: BP 106/73
[2019-11-06 18:25] VITALS: BP 102/70
[2019-11-06 20:00] VITALS: BP 104/69
[2019-11-07] VITALS: BP 101/53
[2019-11-07 04:00] VITALS: BP 110/70
[2019-11-07] MEDS: Piperacillin/Tazobactam 3.375 GM in NS 110 ML IVPB SCH ×3 (06:15→22:00)
[2019-11-07 06:49] LABS: BASOPHILS % (AUTO) 1.2 % (0.0-2.0); EOSINOPHILS % (AUTO) 5.8 % (0.0-3.0); HEMATOCRIT 33.2 % (37.0-47.0); LYMPHOCYTES % (AUTO) 13.7 % (20.0-45.0); MEAN CORPUSCULAR VOLUME 86 FL (80-99); MONOCYTES % (AUTO) 10.1 % (1.0-10.0); NEUTROPHILS % (AUTO) 69.3 % (45.0-75.0); PLATELET COUNT 152 K/UL (150-450); RED BLOOD COUNT 3.85 M/UL (4.20-5.40); RED CELL DISTRIBUTION WIDTH 15.3 % (11.6-14.8); WHITE BLOOD COUNT 12.9 K/UL (4.8-10.8)
[2019-11-07 07:09] LABS: ANION GAP 7 mmol/L (5-15); BLOOD UREA NITROGEN 34 mg/dL (7-18); CALCIUM 9.8 MG/DL (8.5-10.1); CARBON DIOXIDE 28 MMOL/L (21-32); CHLORIDE 111 MMOL/L (98-107); CREATININE 0.6 MG/DL (0.55-1.30); POTASSIUM 3.5 MMOL/L (3.5-5.1); SODIUM 146 MMOL/L (136-145)
--- NOTE | 2019-11-07 07:46 | Diagnostic Imaging Report ---
Indication: Vomiting Technique: Supine view of the abdomen Comparison: none Findings: There is evidence of rectal distention by feces. Otherwise unremarkable bowel gas pattern. There is a gastrostomy tube. No unusual masses or calcifications. The bones appear osteoporotic. Impression: Possible rectal fecal impaction No acute process otherwise Gastrostomy
[2019-11-07 08:00] VITALS: BP 113/61
--- NOTE | 2019-11-07 08:43 | History and Physical Report ---
DATE OF ADMISSION: 11/06/2019 HISTORY OF PRESENT ILLNESS: This is an 79-year-old female, who came from the skilled nursing where she has recurrent nausea, vomiting, abdominal pain, and coffee-grounds emesis. The patient is bedridden. She occasionally talks, but is not communicating well. PAST MEDICAL HISTORY: Significant for breast cancer, COPD, history of dementia, depression, failure to thrive. MEDICATIONS: See the list. ALLERGIES: NKA. FAMILY HISTORY: The patient lives at skilled nursing, mostly bedridden and needs a feeder. PHYSICAL EXAMINATION: VITAL SIGNS: Blood pressure currently in the ER 112/70, pulse is 70 to 100, respirations 18 to 25, no fever. SKIN: Looks dehydrated. HEENT: Eyes are open. NECK: Supple. CHEST: Bilateral few crackles. CARDIOVASCULAR: Regular rhythm. Slightly tachycardia. ABDOMEN: Soft. Positive bowel sounds. EXTREMITIES: No edema. GENITOURINARY: Deferred. LABORATORY EXAMINATION: White count 98905, hemoglobin is normal. BUN 51, creatinine 0.9. Urine shows positive nitrite, and leukocyte esterase. ASSESSMENT: 1. Sepsis. 2. UTI. 3. Dehydration. 4. Dementia. 5. Severe malnutrition. PLAN: We will admit her on IV fluid, IV antibiotics. We will consider ID consult. Chao Mcdonald M.D. DR: Hermann JOB#: [id number] CC:
--- NOTE | 2019-11-07 08:43 | Consultation ---
DATE OF CONSULTATION: 11/06/2019 PULMONARY CONSULTATION CONSULTING PHYSICIAN: John Dow M.D. HISTORY OF PRESENT ILLNESS: This is an 79-year-old long-term resident who was brought to the hospital with a report of having hematemesis. Apparently, patient has a chronic G-tube and the fluid coming out from the G-tube looks like coffee-ground, dark brown in color. There was no other bleeding noted actual hematemesis, hematochezia, or melena. Patient is nonverbal, unable to provide any history. Past history, history of previous DVT, however, most recent duplex obtained in July of last year was negative for DVT. There is no ischemia noted on vascular studies. Patient has history of psych disorder, diabetes mellitus, dementia, and CKD. PAST HISTORY: Breast cancer, previous DVT now resolved, diabetes mellitus, psych disorder, dementia, long-term resident. HOME MEDICATIONS: Reviewed and reconciled in chart. REVIEW OF SYSTEMS: Not obtainable. PHYSICAL EXAMINATION: GENERAL: Reveals an 79-year-old female. HEENT: Unremarkable. CHEST: Decreased breath sounds bilaterally with normal heart sounds. ABDOMEN: Soft. G-tube site is clean. EXTREMITIES: There is no edema. NEUROLOGICAL: Not reliable. VITAL SIGNS: Blood pressure 112/70, heart rate 84, respirations 20, she is afebrile . T-max 100.2. LABORATORY DATA: Lab testing shows white count 20,000 otherwise normal CBC and BMP. BUN 56 and calcium 10.7. Urinalysis shows too numerous wbc. Coags are normal. IMAGING STUDIES: Not available at this time per review of ER documentation. X-ray chest has been requested. IMPRESSION: 1. Leukocytosis. 2. Upper GI bleed. 3. Remote history of DVT. 4. Diabetes mellitus. 5. Psych disorder. 6. Breast cancer. 7. Dementia. DISCUSSION: Admit to the hospital. Broad-spectrum antibiotics per ID. fluids. Needs GI eval. Start Protonix. Empiric antibiotics. Oxygen, pulmonary hygiene. We will review chest x-ray when obtained. John Dow M.D. DR: KYLE JOB#: [id number] CC:
[2019-11-07] MEDS ORDERED: NovoLOG Insulin Flexpen SUBQ SCH (09:00)
--- NOTE | 2019-11-07 10:42 | Pulmonology Progress Note ---
Assessment/Plan Assessment/Plan IMPRESSION: 1. Leukocytosis. 2. Upper GI bleed. 3. Remote history of DVT. 4. Diabetes mellitus. 5. Psych disorder. 6. Breast cancer. 7. Dementia. DISCUSSION: Admit to the hospital. Broad-spectrum antibiotics per ID. IV fluids. Start Protonix. Empiric antibiotics. Oxygen, pulmonary hygiene. Wilmar request CXR John Dow M.D. Subjective Interval Events: None new Constitutional: Reports: no symptoms HEENT: Repors: no symptoms Respiratory: Reports: no symptoms Cardiovascular: Reports: no symptoms Gastrointestinal/Abdominal: Reports: no symptoms Allergies: Coded Allergies: No Known Allergies (Unverified , 07/28/18) Objective Last 24 Hour Vital Signs Date Time Temp Pulse Resp B/P (MAP) Pulse Ox O2 Delivery O2 Flow Rate FiO2 11/07/19 09:00 Room Air 11/07/19 08:00 97.6 84 20 113/61 (78) 97 11/07/19 08:00 88 11/07/19 04:00 83 11/07/19 04:00 97.6 91 18 110/70 (83) 98 11/07/19 04:00 Room Air 11/07/19 00:00 Room Air 11/07/19 00:00 98.2 89 20 101/53 (69) 97 11/07/19 00:00 88 11/06/19 21:00 Room Air 11/06/19 21:00 100 11/06/19 20:00 98.7 107 18 104/69 (81) 96 11/06/19 18:27 Room Air 11/06/19 18:25 97.3 89 20 102/70 (81) 97 11/06/19 17:25 99.0 102 17 110/70 97 Room Air 11/06/19 17:19 99.0 98 19 106/73 97 Room Air 11/06/19 15:23 99.2 93 19 112/72 96 Room Air 11/06/19 13:20 98.7 88 18 116/70 96 Room Air 11/06/19 13:20 88 18 Room Air 11/06/19 13:17 98.8 87 18 118/72 (87) 95 Room Air Intake and Output 11/06/19 11/07/19 19:00 07:00 Intake Total 35 ml 600 ml Output Total 200 ml 800 ml Balance -165 ml -200 ml Intake Oral 0 ml IV Total 35 ml 600 ml Output Urine Total 200 ml 800 ml General Appearance: no acute distress HEENT: normocephalic Respiratory/Chest: chest wall non-tender, lungs clear Cardiovascular: normal peripheral pulses Abdomen: normal bowel sounds Microbiology Date/Time Source Procedure Growth Status 11/06/19 15:44 Rectum Received Laboratory Tests 11/06/19 14:00: Urine Color Pale yellow, Urine Appearance Very cloudy, Urine pH 7, Urine Specific [place] 1.010, Urine Protein 3+H, Urine Glucose (UA) Negative, Urine Ketones Negative, Urine Blood 5+H, Urine Nitrite Negative, Urine Bilirubin Negative, Urine Urobilinogen Normal, Urine Leukocyte Esterase 3+H, Urine RBC TntcH, Urine WBC TntcH, Urine Squamous Epithelial Cells Few, Urine Bacteria ModerateH 11/06/19 14:18: White Blood Count 20.0H, Red Blood Count 4.35, Hemoglobin 12.5, Hematocrit 37.2 , Mean Corpuscular Volume 85, Mean Corpuscular Hemoglobin 28.7, Mean Corpuscular Hemoglobin Concent 33.6, Red Cell Distribution Width 15.3H, Platelet Count 171, Mean Platelet Volume 7.0, Neutrophils (%) (Auto) , Lymphocytes (%) (Auto) , Monocytes (%) (Auto) , Eosinophils (%) (Auto) , Basophils (%) (Auto) , Differential Total Cells Counted 100, Neutrophils % ( Manual) 66, Lymphocytes % (Manual) 23, Monocytes % (Manual) 7, Eosinophils % ( Manual) 4H, Basophils % (Manual) 0, Band Neutrophils 0, Platelet Estimate Adequate, Platelet Morphology Normal, Polychromasia 1+, Anisocytosis 1+, Prothrombin Time 10.6, Prothromb Time International Ratio 1.0, Activated Partial Thromboplast Time 22L, Sodium Level 141, Potassium Level 4.0, Chloride Level 105, Carbon Dioxide Level 29, Anion Gap 7, Blood Urea Nitrogen 56H, Creatinine 0.9, Estimat Glomerular Filtration Rate > 60, Glucose Level 121H, Lactic Acid Level 0.90, Calcium Level 10.7H, Total Bilirubin 0.4, Aspartate Amino Transf (AST/SGOT) 26, Alanine Aminotransferase (ALT/SGPT) 17, Alkaline Phosphatase 82, Total Creatine Kinase 89, Creatine Kinase MB 1.1, Creatine Kinase MB Relative Index 1.2, Total Protein 7.6, Albumin 2.5L, Globulin 5.1, Albumin/Globulin Ratio 0.5L 11/07/19 05:54: White Blood Count 12.9H, Red Blood Count 3.85L, Hemoglobin 11.0L, Hematocrit 33.2L, Mean Corpuscular Volume 86, Mean Corpuscular Hemoglobin 28.6, Mean Corpuscular Hemoglobin Concent 33.1, Red Cell Distribution Width 15.3H, Platelet Count 152, Mean Platelet Volume 7.2, Neutrophils (%) (Auto) 69.3, Lymphocytes (%) (Auto) 13.7L, Monocytes (%) (Auto) 10.1H, Eosinophils (%) (Auto ) 5.8H, Basophils (%) (Auto) 1.2, Sodium Level 146H, Potassium Level 3.5, Chloride Level 111H, Carbon Dioxide Level 28, Anion Gap 7, Blood Urea Nitrogen 34H, Creatinine 0.6, Estimat Glomerular Filtration Rate > 60, Glucose Level 93, Calcium Level 9.8, Hemoglobin A1c 5.6 Current Medications Medications (Trade) Dose Ordered Sig/Jonna Route PRN Reason Start Time Stop Time Status Last Admin Dose Admin Acetaminophen (Tylenol) 650 mg Q4H PRN ORAL Mild Pain (Pain Scale 1-3) 11/06/19 22:15 12/06/19 22:14 Dextrose (Dextrose 50%) 25 ml Q30M PRN IV Hypoglycemia 11/07/19 06:45 02/05/20 06:44 Dextrose (Dextrose 50%) 50 ml Q30M PRN IV Hypoglycemia 11/07/19 06:45 02/05/20 06:44 Insulin Aspart (NovoLOG) BEFORE MEALS AND HS SUBQ 11/07/19 11:30 02/05/20 11:29 Piperacillin Sod/ Tazobactam Sod 3.375 gm/Sodium Chloride 110 ml @ 27.5 mls/hr EVERY 8 HOURS IVPB 11/07/19 06:00 11/12/19 05:59 11/07/19 06:15 Sodium Chloride 1,000 ml @ 100 mls/hr Q10H IV 11/06/19 22:15 12/06/19 22:14 11/07/19 08:33 John Dow MD Nov 07, 2019 10:42
[2019-11-07] MEDS: NovoLOG Insulin Flexpen SUBQ SCH ×3 (11:30→21:00)
[2019-11-07 12:00] VITALS: BP 105/54
--- NOTE | 2019-11-07 14:14 | Consultation ---
DATE OF CONSULTATION: 11/07/2019 INFECTIOUS DISEASES CONSULTATION CONSULTING PHYSICIAN: Ama Cui M.D. REFERRING PHYSICIAN: Chao Mcdonald M.D. REASON FOR CONSULTATION: Urinary tract infection. HISTORY OF PRESENTING ILLNESS: This is an 79-year-old lady with history of breast cancer, COPD, dementia, depression, who comes in with nausea, vomiting, abdominal pain, and coffee-ground emesis. She was found to have urinary tract infection. There was a concern for COVID pneumonia and an Infectious Diseases consultation has been obtained for antibiotics. PAST MEDICAL HISTORY: 1. History of breast cancer. 2. COPD. 3. Depression. 4. Dementia. SOCIAL HISTORY: Unknown. FAMILY HISTORY: Unknown. REVIEW OF SYSTEMS: Unable to obtain currently. MEDICATIONS: As an inpatient, she is on insulin, Zosyn, and Tylenol. ALLERGIES: No known drug allergies. PHYSICAL EXAMINATION: VITAL SIGNS: Temperature of 97.6, T-max of 99.2, pulse of 84, respiratory rate 20, blood pressure 113/61, O2 saturation of 97%. HEENT: Pupils equally reactive to light and accommodation. Mouth appears clean without thrush. NECK: Supple. No adenopathy. No JVD. CARDIOVASCULAR: Regular rate and rhythm. No murmurs. LUNGS: Clear to auscultation bilaterally. No crackles. No wheezes. ABDOMEN: Soft, nontender. No organomegaly. EXTREMITIES: No cyanosis, no clubbing, no edema. LABORATORY AND DIAGNOSTIC DATA: White count of 20 on 11/06/2019, white count of 12.9 on 11/07/2019; hemoglobin 11, hematocrit 33.2, MCV 86, platelet count of 152, with neutrophils of 69%. Sodium 146, potassium 3.5, chloride 111, bicarb 28, BUN 34, creatinine 0.6, glucose 93, calcium 9.8. Total bilirubin 0.4, AST 26, ALT 17, alkaline phosphatase 82. CK of 89, CK-MB of 1.1. Total protein 7.6, albumin 2.5. UA showing too numerous to count white cells. Abdominal x-ray showing rectal fecal impaction. No acute process. ASSESSMENT: This is an 79-year-old lady with history of breast cancer, COPD, dementia, who comes in with nausea, vomiting, abdominal pain, and coffee-ground emesis and was found to have: 1. Urinary tract infection. 2. We would like to rule out COVID-19 as a possibility. 3. Dementia. 4. Leukocytosis is improving. PLAN: 1. Continue Zosyn. 2. We will order urine cultures. 3. We will order COVID-19 testing. 4. We will follow up the patient clinically. 5. We would recommend isolation. I would like to thank, Dr. Mcdonald for this consultation. Ama Cui M.D. DR: CHAZ JOB#: [id number] CC: Chao Mcdonald M.D.; Fax#: [phone]
[2019-11-07 16:00] VITALS: BP 109/58
--- NOTE | 2019-11-07 16:28 | Diagnostic Imaging Report ---
Indication: Cough Technique: One view of the chest Comparison: None Findings: Calcified granuloma projects at the right lung base. Jber project over the right chest. No acute infiltrates, effusions, or congestion. Normal heart size. Impression: No acute process Evidence of old granulomatous disease
[2019-11-07 20:00] VITALS: BP 113/54
[2019-11-08] VITALS: BP 104/69
[2019-11-08 04:00] VITALS: BP 97/50
[2019-11-08] MEDS: Piperacillin/Tazobactam 3.375 GM in NS 110 ML IVPB SCH (05:39)
[2019-11-08] MEDS: NovoLOG Insulin Flexpen SUBQ SCH ×4 (06:30→21:00)
[2019-11-08 07:55] VITALS: BP 130/67
--- NOTE | 2019-11-08 10:21 | Infectious Diseases Prog Note ---
Assessment/Plan Assessment/Plan antibiotics : zosyn A 1. morganella Urinary tract infection. 2. We would like to rule out COVID-19 pneumonia 3. Dementia. 4. Leukocytosis is improving P 1. d/c zosyn 2. start and continue ceftriaxone 4 more days 3. covid 19 test pending 4. continue isolation Subjective ROS Limited/Unobtainable: Yes Allergies: Coded Allergies: No Known Allergies (Unverified , 07/28/18) Objective Vital Signs Last 24 Hour Vital Signs Date Time Temp Pulse Resp B/P (MAP) Pulse Ox O2 Delivery O2 Flow Rate FiO2 11/08/19 09:00 Room Air 11/08/19 07:55 96.8 62 19 130/67 (88) 98 11/08/19 04:00 97.3 82 20 97/50 (66) 98 11/08/19 04:00 66 11/08/19 00:00 98.2 93 20 104/69 (81) 95 11/08/19 00:00 70 11/07/19 21:00 Room Air 11/07/19 20:00 97.2 72 16 113/54 (73) 97 11/07/19 16:00 82 11/07/19 16:00 97.7 82 16 109/58 (75) 97 11/07/19 12:00 97.8 78 18 105/54 (71) 98 11/07/19 12:00 79 Height (Feet): 5 Height (Inches): 5.00 Weight (Pounds): 115 Microbiology Date/Time Source Procedure Growth Status 11/06/19 14:55 Nasal Nares MRSA Culture - Final NO METHICILLIN RESISTANT STAPH AUREUS... Complete 11/07/19 14:55 Urine,Clean Catch Urine Culture - Preliminary NO GROWTH Resulted 11/06/19 14:00 Urine,Clean Catch Urine Culture - Final Morganella Morganii Complete 11/06/19 15:44 Rectum Received Current Medications Medications (Trade) Dose Ordered Sig/Jonna Route PRN Reason Start Time Stop Time Status Last Admin Dose Admin Acetaminophen (Tylenol) 650 mg Q4H PRN ORAL Mild Pain (Pain Scale 1-3) 11/06/19 22:15 12/06/19 22:14 Dextrose (Dextrose 50%) 25 ml Q30M PRN IV Hypoglycemia 11/07/19 06:45 02/05/20 06:44 Dextrose (Dextrose 50%) 50 ml Q30M PRN IV Hypoglycemia 11/07/19 06:45 02/05/20 06:44 Insulin Aspart (NovoLOG) BEFORE MEALS AND HS SUBQ 11/07/19 11:30 02/05/20 11:29 Piperacillin Sod/ Tazobactam Sod 3.375 gm/Sodium Chloride 110 ml @ 27.5 mls/hr EVERY 8 HOURS IVPB 11/07/19 06:00 11/12/19 05:59 11/08/19 05:39 Sodium Chloride 1,000 ml @ 100 mls/hr Q10H IV 11/06/19 22:15 12/06/19 22:14 11/08/19 04:15 Ama Cui MD Nov 08, 2019 10:21
[2019-11-08 12:00] VITALS: BP 131/77
--- NOTE | 2019-11-08 12:24 | Pulmonology Progress Note ---
Assessment/Plan Assessment/Plan IMPRESSION: 1. Leukocytosis. 2. Upper GI bleed. 3. Remote history of DVT. 4. Diabetes mellitus. 5. Psych disorder. 6. Breast cancer. 7. Dementia. 8. UTI DISCUSSION: Admit to the hospital. Broad-spectrum antibiotics per ID. IV fluids. Start Protonix. Empiric antibiotics. Oxygen, pulmonary hygiene. Has normal CXR without infiltrates John Dow M.D. Subjective Interval Events: None new Constitutional: Reports: no symptoms HEENT: Repors: no symptoms Cardiovascular: Reports: no symptoms Gastrointestinal/Abdominal: Reports: no symptoms Allergies: Coded Allergies: No Known Allergies (Unverified , 07/28/18) Objective Last 24 Hour Vital Signs Date Time Temp Pulse Resp B/P (MAP) Pulse Ox O2 Delivery O2 Flow Rate FiO2 11/08/19 12:00 73 11/08/19 12:00 98.1 88 20 131/77 (95) 96 11/08/19 09:00 Room Air 11/08/19 08:00 66 11/08/19 07:55 96.8 62 19 130/67 (88) 98 11/08/19 04:00 97.3 82 20 97/50 (66) 98 11/08/19 04:00 66 11/08/19 00:00 98.2 93 20 104/69 (81) 95 11/08/19 00:00 70 11/07/19 21:00 Room Air 11/07/19 20:00 97.2 72 16 113/54 (73) 97 11/07/19 16:00 82 11/07/19 16:00 97.7 82 16 109/58 (75) 97 Intake and Output 11/07/19 11/08/19 19:00 07:00 Output Total 450 ml 300 ml Balance -450 ml -300 ml Output Urine Total 450 ml 300 ml General Appearance: no acute distress HEENT: normocephalic Respiratory/Chest: chest wall non-tender Cardiovascular: normal peripheral pulses Abdomen: normal bowel sounds Microbiology Date/Time Source Procedure Growth Status 11/06/19 14:55 Nasal Nares MRSA Culture - Final NO METHICILLIN RESISTANT STAPH AUREUS... Complete 11/07/19 14:55 Urine,Clean Catch Urine Culture - Preliminary NO GROWTH Resulted 11/06/19 14:00 Urine,Clean Catch Urine Culture - Final Morganella Morganii Complete 11/06/19 15:44 Rectum Received Current Medications Medications (Trade) Dose Ordered Sig/Jonna Route PRN Reason Start Time Stop Time Status Last Admin Dose Admin Acetaminophen (Tylenol) 650 mg Q4H PRN ORAL Mild Pain (Pain Scale 1-3) 11/06/19 22:15 12/06/19 22:14 Ceftriaxone Sodium 1 gm/ Dextrose 55 ml @ 110 mls/hr Q24H IVPB 11/08/19 14:00 11/15/19 13:59 Dextrose (Dextrose 50%) 25 ml Q30M PRN IV Hypoglycemia 11/07/19 06:45 02/05/20 06:44 Dextrose (Dextrose 50%) 50 ml Q30M PRN IV Hypoglycemia 11/07/19 06:45 02/05/20 06:44 Insulin Aspart (NovoLOG) BEFORE MEALS AND HS SUBQ 11/07/19 11:30 02/05/20 11:29 Sodium Chloride 1,000 ml @ 100 mls/hr Q10H IV 11/06/19 22:15 12/06/19 22:14 11/08/19 04:15 John Dow MD Nov 08, 2019 12:24
[2019-11-08] MEDS ORDERED: Tubing IV Secondary IV ONE (13:17)
[2019-11-08] MEDS: cefTRIAXone 1 GM in D5W 55 ML IVPB SCH (14:12)
[2019-11-08 16:00] VITALS: BP 132/80
[2019-11-08 20:00] VITALS: BP 101/56
--- NOTE | 2019-11-08 23:14 | Progress Note ---
DATE: 11/08/2019 SUBJECTIVE: This is an elderly female, currently in the bed, 79 years old, comfortable, no distress. The patient was found as nonverbal. The patient was found to have hypoglycemic episodes. Her sugar was 42, given orange juice and blood sugar became 65. No change of mental status. PHYSICAL EXAMINATION: VITAL SIGNS: Stable. CHEST: Bilaterally clear. CARDIOVASCULAR: Regular rhythm. ABDOMEN: Soft. G-tube in place. EXTREMITIES: CCE. NEUROLOGICAL: The patient is a nonverbal bedbound. ASSESSMENT: 1. Hypoglycemic episode. 2. Sepsis. 3. UTI. 4. Diabetes. 5. Dementia. 6. Failure to thrive. PLAN: We will start tube feeding Glucerna at 50 mL/hour. Accu-Chek . Continue sliding scale at low dose. Continue IV antibiotics. ID is on consult. Chao Mcdonald M.D. DR: Hermann JOB#: [id number] CC:
[2019-11-09] VITALS: BP 104/62
[2019-11-09 04:00] VITALS: BP 109/56
[2019-11-09] MEDS: NovoLOG Insulin Flexpen SUBQ SCH ×4 (06:30→21:00)
[2019-11-09 08:00] VITALS: BP 130/72
--- NOTE | 2019-11-09 10:23 | Pulmonology Progress Note ---
Assessment/Plan Assessment/Plan IMPRESSION: 1. Leukocytosis. 2. Upper GI bleed. 3. Remote history of DVT. 4. Diabetes mellitus. 5. Psych disorder. 6. Breast cancer. 7. Dementia. 8. UTI DISCUSSION: Admit to the hospital. Broad-spectrum antibiotics per ID. IV fluids. Start Protonix. Empiric antibiotics. Oxygen, pulmonary hygiene. Has normal CXR without infiltrates John Dow M.D. Subjective Interval Events: None new Constitutional: Reports: no symptoms HEENT: Repors: no symptoms Respiratory: Reports: no symptoms Cardiovascular: Reports: no symptoms Gastrointestinal/Abdominal: Reports: no symptoms Allergies: Coded Allergies: No Known Allergies (Unverified , 07/28/18) Objective Last 24 Hour Vital Signs Date Time Temp Pulse Resp B/P (MAP) Pulse Ox O2 Delivery O2 Flow Rate FiO2 11/09/19 09:00 Room Air 11/09/19 08:00 82 11/09/19 08:00 97.0 78 18 130/72 (91) 98 11/09/19 04:00 84 11/09/19 04:00 98.1 86 18 109/56 (73) 94 11/09/19 00:00 81 11/09/19 00:00 98.2 91 18 104/62 (76) 94 11/08/19 21:00 Room Air 11/08/19 20:00 82 11/08/19 20:00 97.9 88 18 101/56 (71) 96 11/08/19 16:00 97.6 60 19 132/80 (97) 98 11/08/19 12:00 73 11/08/19 12:00 98.1 88 20 131/77 (95) 96 Intake and Output 11/08/19 11/09/19 19:00 07:00 Intake Total 1785 ml 1135 ml Output Total 1400 ml Balance 1785 ml -265 ml Intake Oral 25 ml Free Water 260 ml 400 ml IV Total 1310 ml 400 ml Tube Feeding 190 ml 335 ml Output Urine Total 1400 ml # Bowel Movements 1 General Appearance: no acute distress HEENT: normocephalic Respiratory/Chest: chest wall non-tender Cardiovascular: normal peripheral pulses Microbiology Date/Time Source Procedure Growth Status 11/07/19 14:55 Nasopharynx Coronavirus COVID-19 PCR ([facility]) - Final Complete 11/06/19 14:55 Nasal Nares MRSA Culture - Final NO METHICILLIN RESISTANT STAPH AUREUS... Complete 11/07/19 14:55 Urine,Clean Catch Urine Culture - Preliminary NO GROWTH AFTER 24 HOURS Resulted 11/06/19 14:00 Urine,Clean Catch Urine Culture - Final Morganella Morganii Complete 11/06/19 15:44 Rectum - Final NO CARBAPENEM-RESISTANT ENTEROBACTERI... Complete 11/06/19 15:44 Rectum VRE Culture - Final NO VANCOMYCIN RESISTANT ENTEROCOCCUS ... Complete Current Medications Medications (Trade) Dose Ordered Sig/Jonna Route PRN Reason Start Time Stop Time Status Last Admin Dose Admin Acetaminophen (Tylenol) 650 mg Q4H PRN ORAL Mild Pain (Pain Scale 1-3) 11/06/19 22:15 12/06/19 22:14 Ceftriaxone Sodium 1 gm/ Dextrose 55 ml @ 110 mls/hr Q24H IVPB 11/08/19 14:00 11/15/19 13:59 11/08/19 14:12 Dextrose (Dextrose 50%) 25 ml Q30M PRN IV Hypoglycemia 11/07/19 06:45 02/05/20 06:44 Dextrose (Dextrose 50%) 50 ml Q30M PRN IV Hypoglycemia 11/07/19 06:45 02/05/20 06:44 Insulin Aspart (NovoLOG) BEFORE MEALS AND HS SUBQ 11/07/19 11:30 02/05/20 11:29 Sodium Chloride 1,000 ml @ 100 mls/hr Q10H IV 11/06/19 22:15 12/06/19 22:14 11/09/19 09:32 John Dow MD Nov 09, 2019 10:23
[2019-11-09 12:00] VITALS: BP 126/67
--- NOTE | 2019-11-09 12:59 | Infectious Diseases Prog Note ---
Assessment/Plan Assessment/Plan A 1. Morganella Urinary tract infection. 2. Negative COVID19 test 3. Dementia. 4. Leukocytosis is improving P 1.continue ceftriaxone 3 more days 2. Discontinue isolation Subjective ROS Limited/Unobtainable: Yes Neurologic: Reports: other - nonverbal Allergies: Coded Allergies: No Known Allergies (Unverified , 07/28/18) Objective Vital Signs Last 24 Hour Vital Signs Date Time Temp Pulse Resp B/P (MAP) Pulse Ox O2 Delivery O2 Flow Rate FiO2 11/09/19 09:00 Room Air 11/09/19 08:00 82 11/09/19 08:00 97.0 78 18 130/72 (91) 98 11/09/19 04:00 84 11/09/19 04:00 98.1 86 18 109/56 (73) 94 11/09/19 00:00 81 11/09/19 00:00 98.2 91 18 104/62 (76) 94 11/08/19 21:00 Room Air 11/08/19 20:00 82 11/08/19 20:00 97.9 88 18 101/56 (71) 96 11/08/19 16:00 97.6 60 19 132/80 (97) 98 Height (Feet): 5 Height (Inches): 5.00 Weight (Pounds): 115 General Appearance: no acute distress HEENT: mucous membranes moist Respiratory/Chest: lungs clear Cardiovascular: normal rate Abdomen: soft, non tender Extremities: no edema Skin: ulcers, other - in sacrum & heels Microbiology Date/Time Source Procedure Growth Status 11/07/19 14:55 Nasopharynx Coronavirus COVID-19 PCR ([facility]) - Final Complete 11/06/19 14:55 Nasal Nares MRSA Culture - Final NO METHICILLIN RESISTANT STAPH AUREUS... Complete 11/07/19 14:55 Urine,Clean Catch Urine Culture - Preliminary NO GROWTH AFTER 24 HOURS Resulted 11/06/19 14:00 Urine,Clean Catch Urine Culture - Final Morganella Morganii Complete 11/06/19 15:44 Rectum - Final NO CARBAPENEM-RESISTANT ENTEROBACTERI... Complete 11/06/19 15:44 Rectum VRE Culture - Final NO VANCOMYCIN RESISTANT ENTEROCOCCUS ... Complete Current Medications Medications (Trade) Dose Ordered Sig/Jonna Route PRN Reason Start Time Stop Time Status Last Admin Dose Admin Acetaminophen (Tylenol) 650 mg Q4H PRN ORAL Mild Pain (Pain Scale 1-3) 11/06/19 22:15 12/06/19 22:14 Ceftriaxone Sodium 1 gm/ Dextrose 55 ml @ 110 mls/hr Q24H IVPB 11/08/19 14:00 11/15/19 13:59 11/08/19 14:12 Dextrose (Dextrose 50%) 25 ml Q30M PRN IV Hypoglycemia 11/07/19 06:45 02/05/20 06:44 Dextrose (Dextrose 50%) 50 ml Q30M PRN IV Hypoglycemia 11/07/19 06:45 02/05/20 06:44 Insulin Aspart (NovoLOG) BEFORE MEALS AND HS SUBQ 11/07/19 11:30 02/05/20 11:29 Sodium Chloride 1,000 ml @ 100 mls/hr Q10H IV 11/06/19 22:15 12/06/19 22:14 11/09/19 09:32 Kwasi Barba MD Nov 09, 2019 12:59
[2019-11-09] MEDS: cefTRIAXone 1 GM in D5W 55 ML IVPB SCH (13:14)
[2019-11-09 16:00] VITALS: BP 120/54
[2019-11-09 20:00] VITALS: BP 150/88
[2019-11-09] MEDS: Pantoprazole Inj IVP SCH (21:22)
[2019-11-10] VITALS: BP 113/66
--- NOTE | 2019-11-10 03:00 | Progress Note ---
DATE: 11/09/2019 SUBJECTIVE: This is an elderly female, currently in bed, comfortable. No distress. PHYSICAL EXAMINATION: VITAL SIGNS: Blood pressure is 110/70, pulse 74, respiration 18. No fever. HEENT: NAD. CHEST: Bilaterally clear. CARDIOVASCULAR: Regular rhythm. No gallop. No murmur. ABDOMEN: Soft. EXTREMITIES: CCE. NEUROLOGICAL: The patient is in no focal deficit. Neurologically, nonverbal, bedbound. GENITOURINARY: Deferred. LABORATORY DATA: The patient has no laboratories. ASSESSMENT: 1. Urinary tract infection. 2. Pneumonia. 3. Sepsis. 4. Dementia. 5. Encephalopathy. PLAN: We will admit on medical floor, continue IV fluid, intravenous antibiotic, bronchodilator treatments, pulmonary and ID is on consult. Chao Mcdonald M.D. DR: LORI JOB#: [id number] CC:
[2019-11-10 04:00] VITALS: BP 114/83
[2019-11-10] MEDS: NovoLOG Insulin Flexpen SUBQ SCH ×4 (06:24→21:00)
[2019-11-10 08:00] VITALS: BP 120/67
[2019-11-10] MEDS: Pantoprazole Inj IVP SCH ×2 (09:31→21:54)
--- NOTE | 2019-11-10 10:27 | Pulmonology Progress Note ---
Assessment/Plan Assessment/Plan IMPRESSION: 1. Leukocytosis. 2. Upper GI bleed. 3. Remote history of DVT. 4. Diabetes mellitus. 5. Psych disorder. 6. Breast cancer. 7. Dementia. 8. UTI 9. Candiduria DISCUSSION: Admit to the hospital. Broad-spectrum antibiotics per ID. IV fluids. On Protonix. Empiric antibiotics. Oxygen prn, pulmonary hygiene. Has normal CXR without infiltrates John Dow M.D. Subjective Interval Events: None new; candiduria noted Constitutional: Reports: no symptoms HEENT: Repors: no symptoms Respiratory: Reports: no symptoms Cardiovascular: Reports: no symptoms Gastrointestinal/Abdominal: Reports: no symptoms Allergies: Coded Allergies: No Known Allergies (Unverified , 07/28/18) Objective Last 24 Hour Vital Signs Date Time Temp Pulse Resp B/P (MAP) Pulse Ox O2 Delivery O2 Flow Rate FiO2 11/10/19 04:00 98.0 108 19 114/83 (93) 95 11/10/19 04:00 77 11/10/19 00:00 97.6 78 20 113/66 (82) 100 11/10/19 00:00 85 11/09/19 21:00 Room Air 11/09/19 20:00 96 11/09/19 20:00 97.7 96 20 150/88 (108) 98 11/09/19 16:00 100 11/09/19 16:00 97.0 70 18 120/54 (76) 95 11/09/19 12:00 86 11/09/19 12:00 98.0 60 18 126/67 (86) 96 Intake and Output 11/09/19 11/10/19 19:00 07:00 Intake Total 1160 ml 600 ml Output Total 800 ml 200 ml Balance 360 ml 400 ml Free Water 400 ml IV Total 100 ml 600 ml Tube Feeding 660 ml Output Urine Total 800 ml 200 ml # Bowel Movements 1 General Appearance: no acute distress HEENT: normocephalic Respiratory/Chest: chest wall non-tender, lungs clear Cardiovascular: normal peripheral pulses Abdomen: normal bowel sounds Microbiology Date/Time Source Procedure Growth Status 11/07/19 14:55 Nasopharynx Coronavirus COVID-19 PCR ([facility]) - Final Complete 11/07/19 14:55 Urine,Clean Catch Urine Culture - Final YEAST Complete Laboratory Tests 11/10/19 04:50: Stool Occult Blood [Pending] Current Medications Medications (Trade) Dose Ordered Sig/Jonna Route PRN Reason Start Time Stop Time Status Last Admin Dose Admin Acetaminophen (Tylenol) 650 mg Q4H PRN ORAL Mild Pain (Pain Scale 1-3) 11/06/19 22:15 12/06/19 22:14 Ceftriaxone Sodium 1 gm/ Dextrose 55 ml @ 110 mls/hr Q24H IVPB 11/08/19 14:00 11/15/19 13:59 11/09/19 13:14 Dextrose (Dextrose 50%) 25 ml Q30M PRN IV Hypoglycemia 11/07/19 06:45 02/05/20 06:44 Dextrose (Dextrose 50%) 50 ml Q30M PRN IV Hypoglycemia 11/07/19 06:45 02/05/20 06:44 Insulin Aspart (NovoLOG) BEFORE MEALS AND HS SUBQ 11/07/19 11:30 02/05/20 11:29 Pantoprazole (Protonix) 40 mg EVERY 12 HOURS IVP 11/09/19 21:00 12/09/19 20:59 11/10/19 09:31 Sodium Chloride 1,000 ml @ 100 mls/hr Q10H IV 11/06/19 22:15 12/06/19 22:14 11/09/19 20:54 John Dow MD Nov 10, 2019 10:27
--- NOTE | 2019-11-10 10:40 | Infectious Diseases Prog Note ---
Assessment/Plan Assessment/Plan antibiotics : ceftriaxone A 1. morganella Urinary tract infection. 2. COVID-19 test negative 3. Dementia. 4. Leukocytosis is improving P 1. continue ceftriaxone 2 more days 2. will follow up cultures Subjective ROS Limited/Unobtainable: Yes Allergies: Coded Allergies: No Known Allergies (Unverified , 07/28/18) Objective Vital Signs Last 24 Hour Vital Signs Date Time Temp Pulse Resp B/P (MAP) Pulse Ox O2 Delivery O2 Flow Rate FiO2 11/10/19 04:00 98.0 108 19 114/83 (93) 95 11/10/19 04:00 77 11/10/19 00:00 97.6 78 20 113/66 (82) 100 11/10/19 00:00 85 11/09/19 21:00 Room Air 11/09/19 20:00 96 11/09/19 20:00 97.7 96 20 150/88 (108) 98 11/09/19 16:00 100 11/09/19 16:00 97.0 70 18 120/54 (76) 95 11/09/19 12:00 86 11/09/19 12:00 98.0 60 18 126/67 (86) 96 Height (Feet): 5 Height (Inches): 5.00 Weight (Pounds): 115 Microbiology Date/Time Source Procedure Growth Status 11/07/19 14:55 Nasopharynx Coronavirus COVID-19 PCR ([facility]) - Final Complete 11/07/19 14:55 Urine,Clean Catch Urine Culture - Final YEAST Complete Laboratory Tests Test 11/10/19 04:50 Stool Occult Blood Pending Current Medications Medications (Trade) Dose Ordered Sig/Jonna Route PRN Reason Start Time Stop Time Status Last Admin Dose Admin Acetaminophen (Tylenol) 650 mg Q4H PRN ORAL Mild Pain (Pain Scale 1-3) 11/06/19 22:15 12/06/19 22:14 Ceftriaxone Sodium 1 gm/ Dextrose 55 ml @ 110 mls/hr Q24H IVPB 11/08/19 14:00 11/15/19 13:59 11/09/19 13:14 Dextrose (Dextrose 50%) 25 ml Q30M PRN IV Hypoglycemia 11/07/19 06:45 02/05/20 06:44 Dextrose (Dextrose 50%) 50 ml Q30M PRN IV Hypoglycemia 11/07/19 06:45 02/05/20 06:44 Insulin Aspart (NovoLOG) BEFORE MEALS AND HS SUBQ 11/07/19 11:30 02/05/20 11:29 Pantoprazole (Protonix) 40 mg EVERY 12 HOURS IVP 11/09/19 21:00 12/09/19 20:59 11/10/19 09:31 Sodium Chloride 1,000 ml @ 100 mls/hr Q10H IV 11/06/19 22:15 12/06/19 22:14 11/09/19 20:54 Ama Cui MD Nov 10, 2019 10:40
[2019-11-10 11:47] LABS: BASOPHILS % (AUTO) 1.5 % (0.0-2.0); EOSINOPHILS % (AUTO) 2.9 % (0.0-3.0); HEMATOCRIT 29.8 % (37.0-47.0); HEMOGLOBIN 10.3 G/DL (12.0-16.0); LYMPHOCYTES % (AUTO) 19.1 % (20.0-45.0); MEAN CORPUSCULAR VOLUME 83 FL (80-99); MONOCYTES % (AUTO) 8.2 % (1.0-10.0); NEUTROPHILS % (AUTO) 68.2 % (45.0-75.0); PLATELET COUNT 176 K/UL (150-450); RED BLOOD COUNT 3.57 M/UL (4.20-5.40); RED CELL DISTRIBUTION WIDTH 14.5 % (11.6-14.8); WHITE BLOOD COUNT 9.9 K/UL (4.8-10.8)
[2019-11-10 12:00] VITALS: BP 120/56
[2019-11-10] MEDS: cefTRIAXone 1 GM in D5W 55 ML IVPB SCH (13:13)
--- NOTE | 2019-11-10 15:59 | Consultation ---
DATE OF CONSULTATION: 11/10/2019 CONSULTING PHYSICIAN: Ricky Moore M.D. CHIEF COMPLAINT: GI bleeding. HISTORY OF PRESENT ILLNESS: Most of the history per chart. This is an 79-year-old female, [facility] patient with history of breast cancer, COPD, dementia, depression was transferred to the hospital with nausea, vomiting, abdominal pain, questionable coffee-grounds emesis. Patient also has urinary tract infection, fungal UTI and she is also in isolation for COVID, first one negative. Patient also has dysphagia with a G-tube in place. So, GI consult requested for evaluation of GI bleeding. PAST MEDICAL HISTORY: 1. Breast cancer. 2. COPD. 3. Depression. 4. Dementia. 5. Dysphagia with G-tube. 6. Diabetes. ALLERGIES: No known drug allergies. MEDICATIONS: Please see medication reconciliation list. SOCIAL HISTORY: Currently patient lives in a [facility]. No recent history of tobacco, alcohol, or drug abuse. PAST SURGICAL HISTORY: Unknown. PHYSICAL EXAMINATION: VITAL SIGNS: Temperature is 98, pulse 77, respirations 19, blood pressure is 114/83. HEENT: Normocephalic and atraumatic. Mild pale conjunctivae. NECK: Supple. No evidence of obvious lymphadenopathy. CARDIOVASCULAR: Regular rate and rhythm. Plus S1-S2. LUNGS: Decreased breath sounds bilaterally diffusely on the supine exam. ABDOMEN: Soft, nontender. No rebound. No guarding. No peritoneal sign. G-tube in place. EXTREMITIES: No cyanosis, no clubbing, no edema. ASSESSMENT: This is an 79-year-old female admitted to the hospital with possible GI bleeding, coffee-grounds emesis. PLAN: At this time, there is no hemoglobin and hematocrit for last 2 days. We can order a stat CBC for today to see where the hemoglobin stands. Stool OB has been sent, which is pending. According to the nurse at the bedside, patient is tolerating G-tube feeding, has not had any more recurrent coffee-grounds emesis, but still had some dark color stool. Currently, patient is on PPI twice a day. So, our plan will be given the patient is on COVID isolation and hemoglobin last one has been 11 to hold off on endoscopy. Repeat CBC. Continue on PPI. Continue G-tube feeding. Follow stool OB and consider GI procedures if there is a significant GI bleeding and drop in hemoglobin and hematocrit and if the patient is off of isolation. I want to thank Dr. Mcdonald for this kind referral. Ricky Moore M.D. DR: DAVID JOB#: [id number] CC: Chao Mcdonald M.D.; Fax#: [phone]
[2019-11-10 16:00] VITALS: BP 139/81
[2019-11-10 20:00] VITALS: BP 143/71
[2019-11-11] VITALS: BP 138/75
--- NOTE | 2019-11-11 01:00 | Progress Note ---
DATE: 11/10/2019 SUBJECTIVE: This is an 79 years old female currently in bed, comfortable, nonverbal. OBJECTIVE: VITAL SIGNS: Blood pressure today is 130/70, pulse 74, respirations 18. HEENT: NAD. CHEST: Bilaterally clear. CARDIOVASCULAR: Irregular rhythm. No gallop. No murmur. ABDOMEN: Soft. EXTREMITIES: CCE. NEUROLOGICAL: The patient is mostly in the bed and nonverbal. GENITOURINARY: Deferred. ASSESSMENT/PLAN: 1. UTI. 2. Sepsis. 3. Dehydration. 4. Dysphagia. PLAN: Continue IV antibiotics. Continue G-tube feeding. Continue supportive treatment. Chao Mcdonald M.D. DR: ADRIAN JOB#: [id number] CC:
[2019-11-11 04:00] VITALS: BP 119/60
[2019-11-11 06:29] LABS: BASOPHILS % (AUTO) 1.2 % (0.0-2.0); EOSINOPHILS % (AUTO) 4.3 % (0.0-3.0); HEMOGLOBIN 10.7 G/DL (12.0-16.0); LYMPHOCYTES % (AUTO) 20.7 % (20.0-45.0); MEAN CORPUSCULAR VOLUME 85 FL (80-99); MONOCYTES % (AUTO) 8.5 % (1.0-10.0); NEUTROPHILS % (AUTO) 65.3 % (45.0-75.0); PLATELET COUNT 205 K/UL (150-450); RED BLOOD COUNT 3.76 M/UL (4.20-5.40); RED CELL DISTRIBUTION WIDTH 14.5 % (11.6-14.8)
[2019-11-11] MEDS: NovoLOG Insulin Flexpen SUBQ SCH ×4 (06:30→21:00)
[2019-11-11 07:18] LABS: ANION GAP 7 mmol/L (5-15); BLOOD UREA NITROGEN 12 mg/dL (7-18); CALCIUM 9.1 MG/DL (8.5-10.1); CARBON DIOXIDE 27 MMOL/L (21-32); CHLORIDE 108 MMOL/L (98-107); CREATININE 0.5 MG/DL (0.55-1.30); SODIUM 142 MMOL/L (136-145)
[2019-11-11 08:00] VITALS: BP 130/82
--- NOTE | 2019-11-11 09:05 | General Progress Note ---
Assessment/Plan Assessment/Plan: 1. Breast cancer. 2. COPD. 3. Depression. 4. Dementia. 5. Dysphagia with G-tube. 6. Diabetes. 7. GIB GTF stable H&H on ppi stool ob positive plan GI procedures when COVID isolation is off Subjective ROS Limited/Unobtainable: No Allergies: Coded Allergies: No Known Allergies (Unverified , 07/28/18) Objective Last 24 Hour Vital Signs Date Time Temp Pulse Resp B/P (MAP) Pulse Ox O2 Delivery O2 Flow Rate FiO2 11/11/19 04:00 72 11/11/19 04:00 98.0 79 16 119/60 (79) 98 11/11/19 00:00 72 11/11/19 00:00 98.1 84 16 138/75 (96) 96 11/10/19 21:00 Room Air 11/10/19 20:00 75 11/10/19 20:00 98.0 89 17 143/71 (95) 96 11/10/19 16:00 69 11/10/19 16:00 97.6 95 20 139/81 (100) 99 11/10/19 12:00 73 11/10/19 12:00 97.4 95 19 120/56 (77) 97 Intake and Output 11/10/19 11/11/19 19:00 07:00 Intake Total 435 ml Output Total 1100 ml 900 ml Balance -665 ml -900 ml Free Water 400 ml Tube Feeding 35 ml Output Urine Total 1100 ml 900 ml # Voids 1 # Bowel Movements 3 1 Laboratory Tests 11/10/19 11:05: White Blood Count 9.9, Red Blood Count 3.57L, Hemoglobin 10.3L, Hematocrit 29.8L , Mean Corpuscular Volume 83, Mean Corpuscular Hemoglobin 28.9, Mean Corpuscular Hemoglobin Concent 34.6, Red Cell Distribution Width 14.5, Platelet Count 176, Mean Platelet Volume 6.4L, Neutrophils (%) (Auto) 68.2, Lymphocytes ( %) (Auto) 19.1L, Monocytes (%) (Auto) 8.2, Eosinophils (%) (Auto) 2.9, Basophils (%) (Auto) 1.5 11/11/19 05:50: White Blood Count 10.0, Red Blood Count 3.76L, Hemoglobin 10.7L, Hematocrit 32.0L, Mean Corpuscular Volume 85, Mean Corpuscular Hemoglobin 28.4, Mean Corpuscular Hemoglobin Concent 33.3, Red Cell Distribution Width 14.5, Platelet Count 205, Mean Platelet Volume 6.5, Neutrophils (%) (Auto) 65.3, Lymphocytes (% ) (Auto) 20.7, Monocytes (%) (Auto) 8.5, Eosinophils (%) (Auto) 4.3H, Basophils (%) (Auto) 1.2, Sodium Level 142, Potassium Level 4.0, Chloride Level 108H, Carbon Dioxide Level 27, Anion Gap 7, Blood Urea Nitrogen 12, Creatinine 0.5L, Estimat Glomerular Filtration Rate > 60, Glucose Level 109H, Calcium Level 9.1 Height (Feet): 5 Height (Inches): 5.00 Weight (Pounds): 115 General Appearance: no apparent distress EENT: normal ENT inspection Neck: supple Cardiovascular: normal rate Respiratory/Chest: decreased breath sounds Abdomen: normal bowel sounds, non tender, soft Extremities: non-tender Ricky Moore MD Nov 11, 2019 09:05
[2019-11-11] MEDS: Pantoprazole Inj IVP SCH ×2 (10:06→21:11)
--- NOTE | 2019-11-11 11:01 | Infectious Diseases Prog Note ---
Assessment/Plan Assessment/Plan antibiotics : ceftriaxone A 1. morganella Urinary tract infection. 2. COVID-19 test negative 3. Dementia. 4. Leukocytosis is improving P 1. continue ceftriaxone 1 more day 2. will follow up cultures Subjective ROS Limited/Unobtainable: Yes Allergies: Coded Allergies: No Known Allergies (Unverified , 07/28/18) Objective Vital Signs Last 24 Hour Vital Signs Date Time Temp Pulse Resp B/P (MAP) Pulse Ox O2 Delivery O2 Flow Rate FiO2 11/11/19 04:00 72 11/11/19 04:00 98.0 79 16 119/60 (79) 98 11/11/19 00:00 72 11/11/19 00:00 98.1 84 16 138/75 (96) 96 11/10/19 21:00 Room Air 11/10/19 20:00 75 11/10/19 20:00 98.0 89 17 143/71 (95) 96 11/10/19 16:00 69 11/10/19 16:00 97.6 95 20 139/81 (100) 99 11/10/19 12:00 73 11/10/19 12:00 97.4 95 19 120/56 (77) 97 Height (Feet): 5 Height (Inches): 5.00 Weight (Pounds): 115 Laboratory Tests Test 11/10/19 11:05 11/11/19 05:50 White Blood Count 9.9 K/UL (4.8-10.8) 10.0 K/UL (4.8-10.8) Red Blood Count 3.57 M/UL (4.20-5.40) L 3.76 M/UL (4.20-5.40) L Hemoglobin 10.3 G/DL (12.0-16.0) L 10.7 G/DL (12.0-16.0) L Hematocrit 29.8 % (37.0-47.0) L 32.0 % (37.0-47.0) L Mean Corpuscular Volume 83 FL (80-99) 85 FL (80-99) Mean Corpuscular Hemoglobin 28.9 PG (27.0-31.0) 28.4 PG (27.0-31.0) Mean Corpuscular Hemoglobin Concent 34.6 G/DL (32.0-36.0) 33.3 G/DL (32.0-36.0) Red Cell Distribution Width 14.5 % (11.6-14.8) 14.5 % (11.6-14.8) Platelet Count 176 K/UL (150-450) 205 K/UL (150-450) Mean Platelet Volume 6.4 FL (6.5-10.1) L 6.5 FL (6.5-10.1) Neutrophils (%) (Auto) 68.2 % (45.0-75.0) 65.3 % (45.0-75.0) Lymphocytes (%) (Auto) 19.1 % (20.0-45.0) L 20.7 % (20.0-45.0) Monocytes (%) (Auto) 8.2 % (1.0-10.0) 8.5 % (1.0-10.0) Eosinophils (%) (Auto) 2.9 % (0.0-3.0) 4.3 % (0.0-3.0) H Basophils (%) (Auto) 1.5 % (0.0-2.0) 1.2 % (0.0-2.0) Sodium Level 142 MMOL/L (136-145) Potassium Level 4.0 MMOL/L (3.5-5.1) Chloride Level 108 MMOL/L (98-107) H Carbon Dioxide Level 27 MMOL/L (21-32) Anion Gap 7 mmol/L (5-15) Blood Urea Nitrogen 12 mg/dL (7-18) Creatinine 0.5 MG/DL (0.55-1.30) L Estimat Glomerular Filtration Rate > 60 mL/min (>60) Glucose Level 109 MG/DL (74-106) H Calcium Level 9.1 MG/DL (8.5-10.1) Current Medications Medications (Trade) Dose Ordered Sig/Jonna Route PRN Reason Start Time Stop Time Status Last Admin Dose Admin Acetaminophen (Tylenol) 650 mg Q4H PRN ORAL Mild Pain (Pain Scale 1-3) 11/06/19 22:15 12/06/19 22:14 Ceftriaxone Sodium 1 gm/ Dextrose 55 ml @ 110 mls/hr Q24H IVPB 11/08/19 14:00 11/15/19 13:59 11/10/19 13:13 Dextrose (Dextrose 50%) 25 ml Q30M PRN IV Hypoglycemia 11/07/19 06:45 02/05/20 06:44 Dextrose (Dextrose 50%) 50 ml Q30M PRN IV Hypoglycemia 11/07/19 06:45 02/05/20 06:44 Insulin Aspart (NovoLOG) BEFORE MEALS AND HS SUBQ 11/07/19 11:30 02/05/20 11:29 Pantoprazole (Protonix) 40 mg EVERY 12 HOURS IVP 11/09/19 21:00 12/09/19 20:59 11/11/19 10:06 Ama Cui MD Nov 11, 2019 11:01
--- NOTE | 2019-11-11 11:15 | Pulmonology Progress Note ---
Assessment/Plan Assessment/Plan IMPRESSION: 1. Leukocytosis. 2. Upper GI bleed. 3. Remote history of DVT. 4. Diabetes mellitus. 5. Psych disorder. 6. Breast cancer. 7. Dementia. 8. UTI 9. Candiduria DISCUSSION: Admit to the hospital. Broad-spectrum antibiotics per ID. IV fluids. On Protonix. Empiric antibiotics. Oxygen prn, pulmonary hygiene. Has normal CXR without infiltrates John Dow M.D. Subjective Interval Events: None new Constitutional: Reports: no symptoms HEENT: Repors: no symptoms Respiratory: Reports: no symptoms Cardiovascular: Reports: no symptoms Gastrointestinal/Abdominal: Reports: no symptoms Allergies: Coded Allergies: No Known Allergies (Unverified , 07/28/18) Objective Last 24 Hour Vital Signs Date Time Temp Pulse Resp B/P (MAP) Pulse Ox O2 Delivery O2 Flow Rate FiO2 11/11/19 04:00 72 11/11/19 04:00 98.0 79 16 119/60 (79) 98 11/11/19 00:00 72 11/11/19 00:00 98.1 84 16 138/75 (96) 96 11/10/19 21:00 Room Air 11/10/19 20:00 75 11/10/19 20:00 98.0 89 17 143/71 (95) 96 11/10/19 16:00 69 11/10/19 16:00 97.6 95 20 139/81 (100) 99 11/10/19 12:00 73 11/10/19 12:00 97.4 95 19 120/56 (77) 97 Intake and Output 11/10/19 11/11/19 19:00 07:00 Intake Total 435 ml Output Total 1100 ml 900 ml Balance -665 ml -900 ml Free Water 400 ml Tube Feeding 35 ml Output Urine Total 1100 ml 900 ml # Voids 1 # Bowel Movements 3 1 General Appearance: no acute distress HEENT: normocephalic Respiratory/Chest: chest wall non-tender Cardiovascular: normal peripheral pulses Abdomen: normal bowel sounds Laboratory Tests 11/11/19 05:50: White Blood Count 10.0, Red Blood Count 3.76L, Hemoglobin 10.7L, Hematocrit 32.0L, Mean Corpuscular Volume 85, Mean Corpuscular Hemoglobin 28.4, Mean Corpuscular Hemoglobin Concent 33.3, Red Cell Distribution Width 14.5, Platelet Count 205, Mean Platelet Volume 6.5, Neutrophils (%) (Auto) 65.3, Lymphocytes (% ) (Auto) 20.7, Monocytes (%) (Auto) 8.5, Eosinophils (%) (Auto) 4.3H, Basophils (%) (Auto) 1.2, Sodium Level 142, Potassium Level 4.0, Chloride Level 108H, Carbon Dioxide Level 27, Anion Gap 7, Blood Urea Nitrogen 12, Creatinine 0.5L, Estimat Glomerular Filtration Rate > 60, Glucose Level 109H, Calcium Level 9.1 Current Medications Medications (Trade) Dose Ordered Sig/Jonna Route PRN Reason Start Time Stop Time Status Last Admin Dose Admin Acetaminophen (Tylenol) 650 mg Q4H PRN ORAL Mild Pain (Pain Scale 1-3) 11/06/19 22:15 12/06/19 22:14 Ceftriaxone Sodium 1 gm/ Dextrose 55 ml @ 110 mls/hr Q24H IVPB 11/08/19 14:00 11/15/19 13:59 11/10/19 13:13 Dextrose (Dextrose 50%) 25 ml Q30M PRN IV Hypoglycemia 11/07/19 06:45 02/05/20 06:44 Dextrose (Dextrose 50%) 50 ml Q30M PRN IV Hypoglycemia 11/07/19 06:45 02/05/20 06:44 Insulin Aspart (NovoLOG) BEFORE MEALS AND HS SUBQ 11/07/19 11:30 02/05/20 11:29 Pantoprazole (Protonix) 40 mg EVERY 12 HOURS IVP 11/09/19 21:00 12/09/19 20:59 11/11/19 10:06 John Dow MD Nov 11, 2019 11:15
[2019-11-11 12:00] VITALS: BP 134/63
[2019-11-11] MEDS: cefTRIAXone 1 GM in D5W 55 ML IVPB SCH (13:52)
[2019-11-11 16:00] VITALS: BP 133/63
[2019-11-11 20:00] VITALS: BP 95/77
--- NOTE | 2019-11-11 23:15 | Progress Note ---
DATE: 11/11/2019 SUBJECTIVE: This is elderly female, came to the emergency room for having fever, hypertension. The patient was found to have urinary tract infection. The patient was treated with IV antibiotics. The patient is physically doing better. She is improving. She is going to go back to the group home with home medications. COVID test was done, it was negative. DISCHARGE DIAGNOSES: 1. Fever, rule out sepsis. 2. Rule out COVID. 3. Dementia. 4. Depression. DIET: She is on G-tube feeding. DISCHARGE MEDICATIONS: See the list. The patient is going to continue antibiotics for few more days. Continue G-tube feeding. Continue home medications. Chao Mcdonald M.D. DR: Bill JOB#: [id number] CC:
[2019-11-12] VITALS: BP 101/70
[2019-11-12 04:00] VITALS: BP 150/87
[2019-11-12] MEDS: NovoLOG Insulin Flexpen SUBQ SCH ×2 (06:30→12:00)
[2019-11-12 08:00] VITALS: BP 118/69
--- NOTE | 2019-11-12 08:11 | General Progress Note ---
Assessment/Plan Assessment/Plan: 1. Breast cancer. 2. COPD. 3. Depression. 4. Dementia. 5. Dysphagia with G-tube. 6. Diabetes. 7. GIB GTF stable H&H on ppi stool ob positive plan GI procedures when COVID isolation is off Subjective ROS Limited/Unobtainable: No Allergies: Coded Allergies: No Known Allergies (Unverified , 07/28/18) Objective Last 24 Hour Vital Signs Date Time Temp Pulse Resp B/P (MAP) Pulse Ox O2 Delivery O2 Flow Rate FiO2 11/12/19 04:00 75 11/12/19 04:00 97.3 123 17 150/87 (108) 98 11/12/19 00:00 98.2 100 18 101/70 (80) 97 11/12/19 00:00 76 11/11/19 21:00 Room Air 11/11/19 20:00 91 11/11/19 20:00 97.9 104 17 95/77 (83) 100 11/11/19 16:00 96.4 83 18 133/63 (86) 99 11/11/19 16:00 83 11/11/19 12:00 97.7 86 19 134/63 (86) 96 11/11/19 12:00 85 11/11/19 09:00 Room Air Intake and Output 11/11/19 11/12/19 19:00 07:00 Intake Total 500 ml 1060 ml Output Total 820 ml 600 ml Balance -320 ml 460 ml Free Water 400 ml 460 ml Tube Feeding 100 ml 600 ml Output Urine Total 820 ml 600 ml # Voids 1 # Bowel Movements 1 Height (Feet): 5 Height (Inches): 5.00 Weight (Pounds): 115 General Appearance: alert EENT: normal ENT inspection Neck: supple Cardiovascular: normal rate Respiratory/Chest: decreased breath sounds Abdomen: normal bowel sounds, non tender, soft Extremities: non-tender Ricky Moore MD Nov 12, 2019 08:11
--- NOTE | 2019-11-12 10:01 | Infectious Diseases Prog Note ---
Assessment/Plan Assessment/Plan antibiotics : ceftriaxone A 1. morganella Urinary tract infection s/p rx 2. COVID-19 test negative 4..20, 4.. 3. Dementia. 4. Leukocytosis is improving P 1. d/c ceftriaxone 2. observe off antibiotics Subjective ROS Limited/Unobtainable: Yes Allergies: Coded Allergies: No Known Allergies (Unverified , 07/28/18) Objective Vital Signs Last 24 Hour Vital Signs Date Time Temp Pulse Resp B/P (MAP) Pulse Ox O2 Delivery O2 Flow Rate FiO2 11/12/19 04:00 75 11/12/19 04:00 97.3 123 17 150/87 (108) 98 11/12/19 00:00 98.2 100 18 101/70 (80) 97 11/12/19 00:00 76 11/11/19 21:00 Room Air 11/11/19 20:00 91 11/11/19 20:00 97.9 104 17 95/77 (83) 100 11/11/19 16:00 96.4 83 18 133/63 (86) 99 11/11/19 16:00 83 11/11/19 12:00 97.7 86 19 134/63 (86) 96 11/11/19 12:00 85 Height (Feet): 5 Height (Inches): 5.00 Weight (Pounds): 115 Microbiology Date/Time Source Procedure Growth Status 11/10/19 13:30 Nasopharynx Coronavirus COVID-19 PCR ([facility]) - Final Complete Current Medications Medications (Trade) Dose Ordered Sig/Jonna Route PRN Reason Start Time Stop Time Status Last Admin Dose Admin Acetaminophen (Tylenol) 650 mg Q4H PRN ORAL Mild Pain (Pain Scale 1-3) 11/06/19 22:15 12/06/19 22:14 Ceftriaxone Sodium 1 gm/ Dextrose 55 ml @ 110 mls/hr Q24H IVPB 11/08/19 14:00 11/15/19 13:59 11/11/19 13:52 Dextrose (Dextrose 50%) 25 ml Q30M PRN IV Hypoglycemia 11/07/19 06:45 02/05/20 06:44 Dextrose (Dextrose 50%) 50 ml Q30M PRN IV Hypoglycemia 11/07/19 06:45 02/05/20 06:44 Insulin Aspart (NovoLOG) BEFORE MEALS AND HS SUBQ 11/07/19 11:30 02/05/20 11:29 Pantoprazole (Protonix) 40 mg EVERY 12 HOURS IVP 11/09/19 21:00 12/09/19 20:59 11/11/19 21:11 Ama Cui MD Nov 12, 2019 10:01
--- NOTE | 2019-11-12 10:14 | Progress Note ---
DATE: 11/07/2019 SUBJECTIVE: This is an elderly female who came with sepsis, encephalopathy, recurrent nausea and vomiting , currently , nonverbal, . OBJECTIVE: VITAL SIGNS: Blood pressure 130/60, pulse 74, respirations 18, and temperature . HEENT: . Eyes are open. NECK: Supple. CHEST: Bilateral few crackles. CARDIOVASCULAR: . ABDOMEN: Soft. Positive bowel sounds. EXTREMITIES: . ASSESSMENT: . PLAN: 1. . Continue IV fluids. 2. Continue IV antibiotics. 3. Consider ID consult. 4. Consider GI consult. Chao Mcdonald M.D. DR: Bill JOB#: [id number] CC:
--- NOTE | 2019-11-12 10:41 | Pulmonology Progress Note ---
Assessment/Plan Assessment/Plan IMPRESSION: 1. Leukocytosis. 2. Upper GI bleed. 3. Remote history of DVT. 4. Diabetes mellitus. 5. Psych disorder. 6. Breast cancer. 7. Dementia. 8. UTI 9. Candiduria DISCUSSION: Admit to the hospital. Broad-spectrum antibiotics per ID. IV fluids. On Protonix. Empiric antibiotics. Oxygen prn, pulmonary hygiene. Has normal CXR without infiltrates John Dow M.D. Subjective ROS Limited/Unobtainable: Yes Interval Events: None new Constitutional: Reports: no symptoms HEENT: Repors: no symptoms Respiratory: Reports: no symptoms Cardiovascular: Reports: no symptoms Gastrointestinal/Abdominal: Reports: no symptoms Allergies: Coded Allergies: No Known Allergies (Unverified , 07/28/18) Objective Last 24 Hour Vital Signs Date Time Temp Pulse Resp B/P (MAP) Pulse Ox O2 Delivery O2 Flow Rate FiO2 11/12/19 04:00 75 11/12/19 04:00 97.3 123 17 150/87 (108) 98 11/12/19 00:00 98.2 100 18 101/70 (80) 97 11/12/19 00:00 76 11/11/19 21:00 Room Air 11/11/19 20:00 91 11/11/19 20:00 97.9 104 17 95/77 (83) 100 11/11/19 16:00 96.4 83 18 133/63 (86) 99 11/11/19 16:00 83 11/11/19 12:00 97.7 86 19 134/63 (86) 96 11/11/19 12:00 85 Intake and Output 11/11/19 11/12/19 19:00 07:00 Intake Total 500 ml 1060 ml Output Total 820 ml 600 ml Balance -320 ml 460 ml Free Water 400 ml 460 ml Tube Feeding 100 ml 600 ml Output Urine Total 820 ml 600 ml # Voids 1 # Bowel Movements 1 General Appearance: no acute distress HEENT: normocephalic Respiratory/Chest: chest wall non-tender Cardiovascular: normal peripheral pulses Abdomen: normal bowel sounds Extremities: no edema Skin: ulcers, other - in sacrum & heels Microbiology Date/Time Source Procedure Growth Status 11/10/19 13:30 Nasopharynx Coronavirus COVID-19 PCR ([facility]) - Final Complete Current Medications Medications (Trade) Dose Ordered Sig/Jonna Route PRN Reason Start Time Stop Time Status Last Admin Dose Admin Acetaminophen (Tylenol) 650 mg Q4H PRN ORAL Mild Pain (Pain Scale 1-3) 11/06/19 22:15 12/06/19 22:14 Dextrose (Dextrose 50%) 25 ml Q30M PRN IV Hypoglycemia 11/07/19 06:45 02/05/20 06:44 Dextrose (Dextrose 50%) 50 ml Q30M PRN IV Hypoglycemia 11/07/19 06:45 02/05/20 06:44 Insulin Aspart (NovoLOG) BEFORE MEALS AND HS SUBQ 11/07/19 11:30 02/05/20 11:29 Pantoprazole (Protonix) 40 mg EVERY 12 HOURS IVP 11/09/19 21:00 12/09/19 20:59 11/11/19 21:11 John Dow MD Nov 12, 2019 10:41
[2019-11-12] MEDS: Pantoprazole Inj IVP SCH (11:02)
[2019-11-12 12:00] VITALS: BP 123/80
[2019-11-12] MEDS ORDERED: PROTONIX40 M2 GT (12:50)
--- NOTE | 2019-11-12 17:29 | Progress Note ---
DATE: 11/12/2019 SUBJECTIVE: This is an elderly female, currently doing better. She is in bed, nonverbal. PHYSICAL EXAMINATION: VITAL SIGNS: Blood pressure 150/87, pulse 75 to 123, temperature no fever. CHEST: Bilaterally clear. CARDIOVASCULAR: Regular rhythm. ABDOMEN: Soft. EXTREMITIES: CCE NEUROLOGICAL: Generalized weakness. LABORATORY DATA: Yesterday white count are 10,000, hemoglobin 11. Chemistry panel, BUN 12, creatinine 0.5, glucose 109. Urine has 3+ leukocyte esterase, TNTC bacteria. ASSESSMENT: 1. Fever, rule out sepsis. 2. UTI. 3. Rule out COVID. 4. Dementia. 5. Dehydration. PLAN: 1. We will currently continue current medical treatment. 2. The patient on ceftriaxone, insulin, G-tube feeding. 3. Discussed with charge nurse. 4. Waiting for second COVID Chao Mcdonald M.D. DR: Bill JOB#: [id number] CC:
--- NOTE | 2019-11-13 17:01 | Discharge Summary ---
Discharge Summary Discharge Summary _ DATE OF ADMISSION: 11/06/2019 DATE OF DISCHARGE: 11/12/2019 DISCHARGED BY: Dr. Mcdonald REASON FOR ADMISSION: 79 years old female, resident of retirement facility, with past medical history of diabetes mellitus, history of breast cancer, psychiatric disorder, dementia, chronic kidney disease, was sent for evaluation due to coffee-ground secretions from G-tube. Patient by herself was nonverbal and unable to provide any information. Upon evaluation vital signs were stable. Pulse oximetry was stable on room air. Laboratory work-up revealed significant leukocytosis . WBC 20 , stable hemoglobin, hematocrit and platelet count. BUN 56, creatinine 0.9. Glucose 121. Lactic acid 0.9. Calcium 10.7. Albumin 2.5. Urinalysis revealed +3 protein , +3 leukocyte esterase , pyuria and moderate bacteria. Abdominal x-ray demonstrated possible rectal fecal impaction. Gastrostomy tube noted. No evidence of air-fluid levels or obstruction. Patient pancultured, started on empiric antibiotics for possible UTI. Patient subsequently admitted for further management. CONSULTANTS: pulmonary Dr. Dow ID specialist [facility] Cui [facility] Patient admitted to telemetry floor and started on IV fluids and empiric antibiotics. GI specialist followed. Hemoglobin and hematocrit were closely monitored with goal to keep hemoglobin above 7. Stool for occult blood was positive. Patient was on PPI. Bowel regimen instituted. Hemoglobin and hematocrit remained stable. Prior to discharge hemoglobin 10.7, hematocrit 32. GI specialist recommended to plan GI procedure after COVID isolation resolved. Urine culture revealed Morganella. Patient was tested for COVID-19 , which came back non-detected on 2 different occasion 11/06 and 11/09. Repeated urine culture revealed yeast. Leukocytosis resolved. Patient completed treatment for UTI. Blood sugar was managed with sliding scale of insulin. Hemoglobin A1c 5.6. Renal parameters and electrolytes were closely monitored. Nephrotoxins were avoided. BUN from 66 down to 12 with IV hydration. Hypercalcemia resolved as well Patient clinically stabilized and was ready for transfer back to [facility] for continuation of care. FINAL DIAGNOSES: Morganella UTI Suspected COVID-19 infection - ruled out GI bleeding Acute kidney injury due to dehydration- resolved Leukocytosis-resolved Dysphagia ,feeding by G-tube Diabetes mellitus History of breast cancer COPD Dementia Depression DISCHARGE MEDICATIONS: See Medication Reconciliation list. DISCHARGE INSTRUCTIONS: Patient was discharged to the [facility]. Follow up with medical doctor at the facility. I have been assigned to dictate discharge summary for this account. I was not involved in the patient's management. Isabel Denny NP Nov 13, 2019 17:01
== END 2019-11-12 17:38 | DRG 871 ==
LOC: EDBD 13:16 → EMR 13:40 → 2E 15:45 → EDBEDREQ 16:14 → 2E 18:52
DX: A41.9 Sepsis, unspecified organism (principal); E43 Unspecified severe protein-calorie malnutrition; N39.0 Urinary tract infection, site not specified; Z68.1 Body mass index [BMI] 19.9 or less, adult; K92.2 Gastrointestinal hemorrhage, unspecified; N17.9 Acute kidney failure, unspecified; Z43.1 Encounter for attention to gastrostomy; E86.0 Dehydration; Z85.3 Personal history of malignant neoplasm of breast; J44.9 Chronic obstructive pulmonary disease, unspecified; F03.90 Unspecified dementia, unspecified severity, without behavioral disturbance, psychotic disturbance, mood disturbance, and anxiety; B96.89 Other specified bacterial agents as the cause of diseases classified elsewhere; R13.10 Dysphagia, unspecified; F32.9 Major depressive disorder, single episode, unspecified; Z86.718 Personal history of other venous thrombosis and embolism; F99 Mental disorder, not otherwise specified; E11.649 Type 2 diabetes mellitus with hypoglycemia without coma; R62.7 Adult failure to thrive
CPT/HCPCS: 36415; 71045; 74018; 80048; 80053; 81003; 82270; 82550; 82553; 83036; 83605; 85007; 85025; 85610; 85730; 86850; 86900; 86901; 87081; 87086; 87181; 87635; 93005; 96365; 96366; 96375; 99285; J7030